=== PATIENT | male | born 1945 | race Caucasian/White ===

== ENCOUNTER 2017-02-27 07:02 | Emergency (ER) | payer MEDICARE ==
[2017-02-27 07:10] VITALS: BP 143/94
--- NOTE | 2017-02-27 07:52 | UC ---
Los Álvarez Angela, [facility] on 02/27/17 at 0717 . Complaint Male HPI - HPI Summary HPI Summary: In Room Note: This pt is a 71 y/o male presenting to [facility] c/o urinary frequency x3 days. Pt c/ o of low back pain as well. Pt denies dysuria, fever, cough, SOB, chest pain, cold symptoms, nausea, vomiting, diarrhea. He states he has been taking Zzzquil for a few months, a sleeping aide, which he notes after reading the label he shouldn't take with an enlarged prostate. He states that he has not been taking his medications at the times he is supposed to. PMHx: kidney infections (years ago). He denies any past surgeries. MDs Note: Vital signs stable, blood pressure 143/94, temperature 98.8. history of enlarged prostate. Visit history: low back discomfort; hematuria, dysuria, frequent urination. On Proscar and Flomax. Pt is not on anti-hypertensive medication. Cytology on 11/21/15 negative for malignant cells in the urine. Nurses Note: Urinary frequency and bilateral lower back pain for past couple days. Denies abdominal pain, fever, hematuria. - History of Current Complaint Chief Complaint: UCGU Stated Complaint: UTI COMPLAINT Hx Obtained From: Patient Onset/Duration: Lasting Days Timing: Lasting Days Associated Signs And Symptoms: Positive: Back Pain. Negative: Fever, Hematuria , Dysuria - Allergies/Home Medications Allergies/Adverse Reactions: Allergies Allergy/AdvReac Type Severity Reaction Status Date / Time No Known Allergies Allergy Verified 02/27/17 07:05 Home Medications: Home Medications Finasteride TAB* [Proscar TAB*] 1 tab PO DAILY 02/27/17 [History Confirmed 02/27] PMH/Surg Hx/FS Hx/Imm Hx - Additional Past Medical History Additional PMH: PMHx: enlarged prostate, kidney infections Other Endocrine History: DENIES: diabetes Other Cardiovascular History: DENIES: HTN - Surgical History Surgical History: Yes Surgery Procedure, Year, and Place: 06/2015 RIGHT KNEE ARTHROSCOPIC SX,LOW BACK, FINGER - Family History Known Family History: Negative: Cardiac Disease, Hypertension, Diabetes - Social History Occupation: Retired Alcohol Use: Occasionally Substance Use Type: None Smoking Status (MU): Never Smoked Tobacco Review of Systems Constitutional: Negative Skin: Negative Eyes: Negative ENT: Negative Respiratory: Negative Cardiovascular: Negative Gastrointestinal: Negative Genitourinary: Frequency Motor: Negative Neurovascular: Negative Musculoskeletal: Other: - low back pain Neurological: Negative All Other Systems Reviewed And Are Negative: Yes Physical Exam Triage Information Reviewed: Yes Vital Signs: Initial Vital Signs Temp 98.8 F 02/27/17 07:07 Pulse 79 02/27/17 07:07 Resp 16 02/27/17 07:07 BP 143/94 02/27/17 07:07 Pulse Ox 100 02/27/17 07:07 Vital Signs Reviewed: Yes - Additional Comments The patient is well-nourished in no acute distress and in no acute pain. The skin is warm and dry and skin color reflects adequate perfusion. HEENT: The head is normocephalic and atraumatic. The pupils are equal and reactive. The conjunctivae are clear and without drainage. Nares are patent and without drainage. Mouth reveals moist mucous membranes and the throat is without erythema and exudate. The external ears are intact. The ear canals are patent and without drainage. The tympanic membranes are intact. Neck is supple with full range of motion and non-tender. There are no carotid bruits. There is no neck vein distension. Respiratory: Chest is non-tender. Lungs are clear to auscultation and breath sounds are symmetrical and equal. Cardiovascular: Hear is regular rate and rhythm. There is no murmur or rub auscultated. There is no peripheral edema and pulses are symmetrical and equal. Abdomen: THE ABDOMEN IS SOFT AND BOWEL SOUNDS ARE PRESENT. THERE IS NO POINT TENDERNESS. THERE IS NEGATIVE CVA TENDERNESS. There are normal bowel sounds heard in all four quadrants. : THERE IS NO INGUINAL ADENOPATHY. GENITALIA IS NORMAL, UNCIRCUMCISED MALE WITH NO TESTICULAR PAIN, SWELLING, REDNESS, OR EVIDENCE OF HERNIA. Musculoskeletal: Extremities are non-tender with full range of motion. There is good capillary refill. There is no peripheral edema or calf tenderness elicited. PAIN AROUND L2 BILATERALLY. INCREASED DISCOMFORT WITH MOVEMENT FROM SIDE TO SIDE. Neurological: Patient is alert and oriented to person, place and time. The patient has symmetrical motor strength in all four extremities. Psychiatric: The patient has an appropriate affect and does not exhibit any anxiety or depression. Complaint Male Course/Dx - Course Course Of Treatment: On exam, there is PAIN IS AROUND L2 BILATERALLY. THERE IS INCREASED DISCOMFORT WITH MOVEMENT FROM SIDE TO SIDE. ABDOMEN IS SOFT, BOWEL SOUNDS PRESENT. NO POINT TENDERNESS. NEGATIVE CVA TENDERNESS. NO INGUINAL ADENOPATHY. GENITALIA IS NORMAL, UNCIRCUMCICED MALE WITH NO TESTITULAR PAIN, SWELLING, REDNESS, OR EVIDENCE OF HERNIA. MDM: Pt with a history of hematuria and benign prostate hypertrophy presents with increased frequency and low back discomfort consistent with musculoskeletal strain. Pt is afebrile. Pts condition has been getting more frequent in the last few days. He is on Flomax and Proscar. He has also started to take a Zzzquil, diphenhydramine. He is also not taking his medication on a regular basis nor at the same time. I explained to the pt one of the adverse reaction of diphenhydramine is urinary frequency. He may also be having increased prostatic hypertrophy and may need a change in medication. Pt will call Dr. Baca in 2 days and stop the diphenhydramine. UA has trace blood otherwise it is negative, and there is no sign of infection. Pt had not complaint of prostate discomfort. Prostate exam deferred. Medications have been included in the original chart and reviewed. Patient is Urgent/ Emergent. BP elevated due to current condition w/o HTN in PMH. - Differential Dx/Diagnosis Differential Diagnosis/HQI/PQRI: Other - Benign prostatic hypertrophy vs medication, adverse reaction to diphenhydramine Provider Diagnoses: Urinary frequency secondary to diphenhydramine Discharge - Discharge Plan Condition: Stable Disposition: HOME Patient Education Materials: Benign Prostatic Hypertrophy (ED) Referrals: Rosas Quintero MD [Primary Care Provider] - Additional Instructions: WE DISCUSSED: 1. You don't appear to have an infection of your bladder, prostate or kidneys. However, if you develop more or different pain or temperature, go to ED. 2. Your urine test did NOT show infection. It revealed a small amount of blood consistent with your history. 3. The medication you are using for sleep can cause frequency. Stop that medication and continue taking your prescriptions on schedule. 4. Call Dr. Baca on Wednesday for further evaluation if condition is not improving. Your medications may need to be adjusted. 5. GO TO ED FOR ANY SIGN OF INFECTION. The documentation as recorded by the Los thompson Angela accurately reflects the service I personally performed and the decisions made by me, Avelino Diez MD.
== END 2017-02-27 07:45 | disposition home or self-care (01) ==
LOC: UCEAST 07:02
DX: R35.0 Frequency of micturition (principal); M54.5 Low back pain; N40.0 Benign prostatic hyperplasia without lower urinary tract symptoms
CPT/HCPCS: 81003; 99211; G0463

== ENCOUNTER 2017-03-03 12:24 | Inpatient (IN) | payer MEDICARE ==
[2017-03-03 14:00] LABS: Hematocrit 43 % (42-52); Hemoglobin 14.3 g/dl (14.0-18.0); Mean Corpuscular HGB Conc 33 g/dl (31-36); Mean Corpuscular Hemoglobin 30 pg (27-31); Mean Corpuscular Volume 91 fL (80-94); Mean Platelet Volume 8 um3 (7.4-10.4); Red Blood Count 4.72 10^6/ul (4.0-5.4); Red Cell Distribution Width 15 % (10.5-15)
--- NOTE | 2017-03-03 14:11 | RAD ---
Indication: Chest pain. Single frontal view of the chest performed at 1347 hours was reviewed. Comparison is made with previous exam dated January 20, 2006. No mediastinal shift is noted. Heart is of normal size and configuration. Lung huston appear clear. IMPRESSION: NO ACTIVE CARDIOPULMONARY DISEASE IS NOTED.
[2017-03-03 14:16] LABS: Troponin I 2.49 ng/mL (<0.04)
[2017-03-03 14:21] LABS: Albumin 3.6 g/dL (3.2-5.2); BUN/Creatinine Ratio 14.3 (8-20); Calcium 8.9 mg/dL (8.6-10.3); EGFR African American 106.2 (>60); EGFR Non-African American 82.6 (>60); Globulin 2.8 g/dL (2-4); Potassium 4.2 mmol/L (3.5-5.0); Total Bilirubin 0.4 mg/dL (0.2-1.0); Total Protein 6.4 g/dL (6.4-8.9)
[2017-03-03] MEDS: Metoprolol Succinate XL TAB* 25 MG PO SCH ×2 (15:48→22:32)
[2017-03-03] MEDS ORDERED: Nitroglycerin 0.4 MG/HR PATCH* (10 MG) TRANSDERM ONE (16:03)
[2017-03-03] MEDS ORDERED: Iohexol 350* (CONTRAST) 500 ML MDV IV ONE (16:12)
--- NOTE | 2017-03-03 16:29 | RAD ---
INDICATION: Back pain evaluate for aortic dissection. COMPARISON: CT abdomen pelvis April 20, 2012 TECHNIQUE: Axial source images were obtained from the thoracic inlet to the symphysis pubis following administration of oral and intravenous contrast. CT angiographic technique was utilized with injection of .....Coronal and sagittal reconstructed images were acquired. CHEST FINDINGS: Neck/thyroid: The visualized neck to include the thyroid appear normal. Chest wall: There are no acute abnormalities of the bony thorax or chest wall. There is no supraclavicular, infraclavicular, or axillary lymphadenopathy. Lungs : There are no pulmonary parenchymal masses or infiltrates. The pulmonary interstitium appears normal. There are no endobronchial lesions. Cardiomediastinal structures: The heart is normal in size. There is no pericardial effusion. There is no evidence of aortic aneurysm or dissection. There is no CT evidence of acute pulmonary embolic disease. There is no mediastinal or hilar adenopathy. The esophagus appears normal. Pleura : There are small pleural-based areas of nodularity. These are both rounded and linear. There are scant pleural calcifications on the right. Suggest correlation with history of prior occupational exposure. ABDOMINAL/PELVIC FINDINGS: Liver: The liver is normal in size. There are no masses. There is no ductal dilatation. Gallbladder: There are no calcified gallstones. There is no evidence of wall thickening or pericholecystic fluid. Spleen: The spleen is normal in size. There are no masses. Pancreas: There is no evidence of pancreatic mass or ductal dilatation. Adrenal glands: There is no evidence of adrenal mass. Kidneys: The kidneys are normal in size and position. There are prompt nephrograms and there is prompt excretion bilaterally. There are no new renal parenchymal masses. There are bilateral parapelvic cysts left greater than right, less likely hydronephrosis. The appearance is unchanged. There is no evidence of nephrolithiasis. Adenopathy: There is no evidence of adenopathy by size criteria. Fluid collections: There are no free or localized fluid collections. Vessels:There are atherosclerotic changes of the aorta. There is no focal aneurysm. There is no dissection. The IVC is unremarkable GI tract: Limited evaluation as oral contrast was not administered. No specific CT abnormality upper or lower GI tracts. Pelvic organs: The prostate is enlarged Bladder: There are no bladder masses. There is extrinsic mass effect produced by the prostate. Abdominal and pelvic soft tissues: The extraperitoneal abdominal and pelvic soft tissues appear normal.. Osseous structures: There are no acute osseous findings. There is spondylitic change of the lumbar spine. IMPRESSION: 1. Nonspecific pleural-based nodularity. Suggest correlation with occupational exposure. Consider follow-up noncontrast CT imaging the chest and [address] evidence of acute pulmonary embolic disease. 3. No CT evidence of aortic aneurysm or dissection. 4. Enlarged prostate. 5. Probable bilateral parapelvic cysts left greater than right, unchanged.
[2017-03-03 16:44] LABS: HDL Cholesterol 45.5 mg/dL
[2017-03-03] MEDS ORDERED: Heparin DRIP 25,000 UNITS(*) 25,000 UNITS/500 ML BAG IVPB SCH (16:45)
[2017-03-03 16:48] LABS: Troponin I 3.77 ng/mL (<0.04)
[2017-03-03] MEDS ORDERED: Heparin VIAL(*) 5000 UNITS/ML VIAL (FIVE THOUSAND) IV SCH (17:00)
--- NOTE | 2017-03-03 18:12 | CONS ---
CC: Aravind Levy MD; Hospitalist Service CONSULTATION REPORT: DATE OF CONSULT: 03/03/17 REASON FOR CONSULTATION: Chest pain and elevated troponins. HISTORY OF PRESENT ILLNESS: Mr. Peters is a 71-year-old gentleman with no prior cardiac history identified, but a family history of coronary disease. The patient was in his usual state of health until early this morning. He awoke early this morning in bed with pain across the lower portion of the chest ; it was vague, somewhat like indigestion, but kept him awake. He sat in the chair for a couple of hours, eventually fell asleep and awoke with similar pain , although somewhat improved. He denied any positional or pleuritic quality to it, but it persisted, so he presented to the emergency department. In the emergency department, his EKG showed a right bundle branch block, but was otherwise unremarkable. His initial troponin was mildly elevated at approximately 2.5. The patient denies any recent travel. Last night, he had no unusual food. He did not overeat. He is a nonsmoker. No recent activity. He has had similar pain back in September and October of this year in the daytime and therefore, a stress test was obtained through [facility] and he was told everything was fine. This discomfort went away and then did not come back until early this morning. The patient has had some pain under the left scapula that has come and gone over time, typically it will occur when he is trying to go to sleep and be positional, and that is bothering him right now as well. He denies any associated nausea, shortness of breath, diaphoresis, and denies any radiation. His neck, jaw and arms feel fine. The patient denies any recent exercise intolerance and he has been quite active doing chores around the house. The patient has a past medical history of benign prostatic hypertrophy, past surgical history, orthopedic surgeries of the knee and finger and left heel. OUTPATIENT MEDICATIONS: Include; 1. Tramadol p.r.n. 2. Proscar 5 mg a day. 3. Flomax 0.4 mg a day. ALLERGIES: He has no known drug allergies. FAMILY HISTORY: Significant in that his mother had a history of congestive heart failure and of bladder cancer. His father has a history of coronary artery disease and paroxysmal atrial fibrillation and a pacemaker. SOCIAL HISTORY: The patient is retired. Did work at the [employer] and was in the [place] war, feels he has had multiple exposures including Agent Rosebud, asbestos and more. He smoked distantly. No history of recreational drug use. REVIEW OF SYSTEMS: Negative for recent fevers, chills, sweats. No hematuria or dysuria. No constipation, diarrhea, change in bowel or bladder habits. No recent [id number] medications. No recent travel. No coughing. It is positive for snoring. He states that his says he snores a lot. He says he has good energy in the daytime. Appetite has been stable. No recent weight gain or loss. No recent swelling in the legs or change in exercisability. All other 14-point review of systems is unremarkable. PHYSICAL EXAM: Vital Signs: On exam, the patient is 5 feet 5 inches, weighs 165 pounds with the BMI of 27.5. General Appearance: A short, fit appearing, mildly centripetally overweight somewhat older gentleman in no acute distress. Psychologic: Calm, cooperative, and pleasant. Neurologic: Awake, alert, and oriented to person, place, and time. Cranial nerves II through XII are intact grossly. Normal sensory and motor function in the upper and lower extremities. Normal gait. Skin: Warm, dry. No cyanosis or rashes. HEENT: Pupils are equal and round. Mucous membranes are moist. Neck: Without increased JVP appreciated. Good carotid pulses. No audible bruits. No thyromegaly. Lungs: Clear with good effort. No wheezes, rales, or rhonchi. Coronary: S1, S2 regular without murmurs or rubs. Abdomen: Active bowel sounds. Soft, nontender. No hepatosplenomegaly or masses. No bruits. Radial pulses are 2 to 3+ and symmetrical. Posterior tibial pulses also strong and symmetrical and dorsalis pedal pulses are easily palpable. Lower extremities are free of edema. Femoral pulses palpable and no bruits appreciated. DIAGNOSTIC STUDIES/LAB DATA: A 12-lead ECG done on arrival to the emergency department at 12:30 today shows normal sinus rhythm, 85 beats a minute, QRS axis of -45, shows a right bundle-branch block and normal ST segments. Repeat EKG at 1433 shows normal sinus rhythm, 68 beats a minute. QRS axis -45 with normal AV conduction time with a right bundle-branch block and stable ST segment. When these EKGs are compared with an old EKG of 2003, the right bundle -branch block is new. At the time of the patient's stress test, 10/01/16, he did have a right bundle- branch block. Exercise Myoview study done, 10/01/16, showed he was able to exercise 5 minutes and 15 seconds on a Bol[place]ar protocol. He had a right bundle-branch block at baseline. No significant ST changes. Resting blood pressure 146/88 with a peak of 182/82. He had normal perfusion rest and stress with an ejection fraction of 76%. LABORATORY DATA: Labs show a white count of 7.0, hematocrit 43, platelets 226, 000, monos slightly increased to 10.2. D-dimer 202. Sodium 137, potassium 4.2 , chloride 106, bicarb 26, BUN 13, creatinine 0.91, glucose 88. ALT of 15. Troponin #1 2.49. Lipids from 05/09/11 showed total cholesterol 207, triglycerides 47, LDL cholesterol 139, and HDL cholesterol 59. Urinalysis was performed, 02/27/17, showed trace blood, nitrite negative, esterase negative, ketone negative, specific gravity 1.015. IMPRESSION: In summary, Mr. Peters is a 71-year-old gentleman who presented after several hours of vague across chest pain that occurred at sleep, with his EKG at his baseline with a right bundle-branch block and mild elevation in troponins. Atherosclerotic risks include family history, mild dyslipidemia in , possible mild hypertension based on history. Also of concern is infrascapular pain that has been coming and going for several weeks and months that is now constant in the emergency department. For the elevated troponins in the setting of atherosclerotic risks, we will get some updated lipids and serial troponins. We will additionally medically manage him with beta-sherin, empiric statins and NEDRA inhibitors as titrated to blood pressure. As he has had a recent stress test, I do not recommend repeating this and instead, I think we should proceed to cardiac catheterization. He still has some back discomfort and therefore, I discussed potentially imaging his aorta to ensure no acute aortic process is occurring on the abdominal aorta. Aspirin should be started and if aorta deemed okay, unfractionated heparin drip should be initiated. Additional recommendations will be made pending this clinical course and response to the above measures. ADDENDUM: Trop #2 3.77, LDL cholesterol 163, echo showed apical hypokinesis, Dr. Ellis cathed and stent in LAD. [id number]/[facility] #: [id number] [facility]PITALMarielle
[2017-03-03] MEDS ORDERED: Ticagrelor* 90 MG TAB PO ONE ×2 (18:16→18:25)
[2017-03-03] MEDS ORDERED: Midazolam* 1 MG/ML 5 ML VIAL (5 MG) ONE (18:42)
[2017-03-03] MEDS ORDERED: fentaNYL* 50 MCG/ML 2 ML VIAL (100 MCG VIAL) ONE (18:42)
[2017-03-03] MEDS ORDERED: Heparin(*) 1000 UNIT/ML 10 ML VIAL CATH LAB IV ONE (18:42)
[2017-03-03] MEDS ORDERED: Iohexol 350 (CONTRAST) 200 ML MDV IV ONE ×2 (18:43→19:53)
[2017-03-03] MEDS ORDERED: VERAPAMIL 2.5 MG/ML 4 ML VIAL ONE (18:43)
[2017-03-03] MEDS ORDERED: nitroGLYCERIN DRIP* 250 ML ONE (18:43)
[2017-03-03] MEDS ORDERED: Heparin 2 UNITS/ML IVPREMIX* 3,000 ML IV ONE (18:43)
[2017-03-03] MEDS ORDERED: Lidocaine 1% INJ* 10 MG/ML 30 ML SDV ONE (18:43)
[2017-03-03] MEDS ORDERED: Bivalirudin(*) 250 MG VIAL ONE (19:39)
--- NOTE | 2017-03-03 20:23 | ECHO ---
Patient: KEITH LINDSAY Rec#: [id number] : 1945 Date: 03/03/2017 Age: 71y Height: 165 cm / 65.0 in Weight: 75 kg / 165.3 lbs Sex: M BSA: 1.82 Room#: ED 3 Admit Date#: 03/03/2017 Type: Inpatient Referring: Mary Steel MD Reading: Mary Steel MD Janitorial Account Manager: Estela Quispe RDCS,RDMS CC: Rosas Quintero MD Transthoracic Echocardiogram Indication: CP BP: 144/81 HR: 81 Rhythm: NSR Findings History: No previous history Technical Comments: The study quality is good. Completed 1700 Left Ventricle: The left ventricular chamber size is normal. There is a prominent septal knuckle. There is a focal wall motion abnormality present.The apex is hypokinetic in multiple views. The estimated ejection fraction is 55-60%. Abnormal left ventricular diastolic filling is observed, consistent with impaired relaxation. Left Atrium: The left atrial chamber size is normal. Right Ventricle: The right ventricular chamber size and systolic function are within normal limits. Right Atrium: The right atrial cavity size is normal. Aortic Valve: The aortic valve is trileaflet. There is no evidence of aortic valve thickening. Systolic excursion of the aortic valve is normal. There is no evidence of aortic regurgitation. There is no evidence of aortic stenosis. Mitral Valve: The mitral valve leaflets appear normal. There is no evidence of mitral regurgitation. There is no evidence of mitral stenosis. Tricuspid Valve: The tricuspid valve leaflets are normal. There is trace tricuspid regurgitation. Unable to estimate the right ventricular systolic pressure. Pulmonic Valve: The pulmonic valve appears normal. There is a trace pulmonic regurgitation. Pericardium: There is no significant pericardial effusion. Aorta: The aortic root appears normal. There is no dilatation of the aortic arch. Pulmonary Artery: The main pulmonary artery appears normal. Venous: The inferior vena cava appears normal in size. There is a greater than 50% respiratory change in the inferior vena cava dimension. Conclusions Normal LV chamber dimensions. Small focal area of apical hypokinesis. LV ejection fraction is 60%. Abnormal left ventricular diastolic filling is observed, consistent with impaired relaxation. The right ventricular chamber size and systolic function are within normal limits. All valves appear structurally normal with good funtion. There is trace tricuspid regurgitation. Compared with prior echo of 02/11/15, EF and valve function is stable. Apical wall motion abnormality is newly noted. Measurements Name Value Normal Range RVIDd (AP) 2D 2.8 cm (0.9 - 2.6) RVDdMajor (2D) 3.1 cm (2.2 - 4.4) RAd ISD 4CH 4.4 cm (3.4 - 4.9) RA (A4C)W 4.7 cm (2.9 - 4.6) IVSd (2D) 1.1 cm (0.6 - 1) LVPWd (2D) 0.9 cm (0.6 - 1) LVIDd (2D) 3.9 cm (3.6 - 5.4) LVIDs (2D) 2.4 cm - LV FS (2D) 39 % (25 - 45) Aortic Annulus 2.2 cm (1.4 - 2.6) Ao root diameter (2D) 3.2 cm (2.1 - 3.5) Ascending Ao 3.4 cm (2.1 - 3.4) Aortic arch 2.7 cm (1.8 - 3.4) LA dimension (AP) 2D 3.5 cm (2.3 - 3.8) LAd ISD 4CH 5.4 cm (2.9 - 5.3) LA ISD 4CH W 4 cm (2.5 - 4.5) Name Value Normal Range LA ESV SP 4CH (A/L) 49.55 ml - LA ESV SP 2CH (A/L) 54.74 ml - LA ESV BP (A/L) 53.81 ml - LA ESV BP (A/L) index 29 ml/m2 - LA ESV SP 4CH (MOD) 47.42 ml - LA ESV SP 2CH (MOD) 51.05 ml - Name Value Normal Range MV E-wave Vmax 0.6 m/sec - MV deceleration time 225 msec - MV A-wave Vmax 0.6 m/sec - MV E:A ratio 1 ratio - P. vein S-wave Vmax 0.4 m/sec - P. vein D-wave Vmax 0.3 m/sec - P. vein S:D Vmax ratio 1.5 ratio - P. vein A-wave duration 97 msec - LV septal e' Vmax 0.06 m/sec - LV lateral e' Vmax 0.06 m/sec - LV E:e' septal ratio 10 ratio - LV E:e' lateral ratio 10 ratio - Name Value Normal Range AV Vmax 1.2 m/sec - AV VTI 23.1 cm - AV peak gradient 6 mmHg - AV mean gradient 3.1 mmHg - LVOT Vmax 0.9 m/sec - LVOT VTI 20 cm - LVOT peak gradient 3.2 mmHg - LVOT mean gradient 1.8 mmHg - LJ Vmax 0.7 m/sec - Name Value Normal Range RAP 8 mmHg - IVC diameter 1.5 cm - Name Value Normal Range PV Vmax 0.8 m/sec - PV peak gradient 2.6 mmHg -
[2017-03-03] MEDS ORDERED: Nitroglycerin TAB 0.4 MG* 0.4 MG TAB SL PRN (20:26)
[2017-03-03] MEDS ORDERED: NS 0.9% 1000 ML* 1,000 ML IV SCH (20:30)
[2017-03-03] MEDS: Atorvastatin* 40 MG TAB PO SCH (20:33)
--- NOTE | 2017-03-03 20:46 | HP ---
CC: Dr. Quintero * HISTORY AND PHYSICAL: DATE OF ADMISSION: PRIMARY CARE PROVIDER: Dr. Rosas Quintero. MY ATTENDING WHILE IN THE HOSPITAL: Dr. Jj Quinonez * (DICTATED BY ANGELA BAH) CHIEF COMPLAINT: Chest pain since about 1:30 this morning. HISTORY OF PRESENT ILLNESS: Mr. Peters is a 71-year-old male with a past medical history significant for BPH, musculoskeletal complaints, and a previous episode of chest pain with a negative stress test, who presents today for approximately 12 hours of what he describes as an achy pressure in the center of his chest, substernal. The patient states that it is a 4/10 at the time of this interview down from an 8/10 at its worst earlier today. The patient states the pain never really went away. The patient cannot identify any provoking or palliating factors. The patient states it is not worse with exercise. When he got up and walked around, it did not get any better or worse , it was constant and started when he was at rest. The patient denies pain radiating to his arms, sweating, nausea, shortness of breath. The patient also denies any long-term increases in leg swelling or decreases in exercise tolerance. The patient also denies postural nocturnal dyspnea, nocturia, or orthopnea. The patient took aspirin 325 mg at home today before coming to the hospital because he suspected this might be of cardiac origin. The patient had a chest pain earlier this year that was in a different spot, more on the left side of his chest, and was also described as a pressure, but did not feel like the pain he had today and only lasted about 2 minutes at each episode, usually at rest. The patient then had a negative stress test, which revealed right bundle branch block, but nothing else. The patient also has back pain for several weeks below his left shoulder blade. The patient states this is worse when he is lying down and usually, he says he can make it go away by moving around. He rates it a 2-3/10 and states it feels like someone is poking him with their fist in his back. The patient denies any recent illnesses, sick contacts. The patient retired from his part-time job earlier this year and has gained 15 to 20 pounds due to increased inactivity since then. The patient was screened for diabetes at his primary care doctor last year. PAST MEDICAL HISTORY: BPH; right bundle branch block; arthritis, lower extremity; history of sciatica. PAST SURGICAL HISTORY: Hemilaminectomy, 2003; vocal cord polyps removal in 1982 ; repair of a degloving injury; meniscectomy. MEDICATIONS: 1. Tramadol 50 mg p.o. daily. 2. Finasteride 5 mg p.o. daily. 3. Tamsulosin 0.4 mg p.o. daily. ALLERGIES: No known drug allergies. FAMILY HISTORY: The patient's father had a pacemaker put in for reasons unknown. The patient denies any other family history of coronary artery disease. The patient denies a family history of diabetes. The patient denies any family history of cancer. Patient denies any other significant family history. SOCIAL HISTORY: The patient smoked for approximately 15 years while in the when he was around 22. The patient drinks occasional alcohol and denies any drug use. 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 The patient is , with 2 children. REVIEW OF SYSTEMS: The patient denies fever, chills, nausea, vomiting, cough, hemoptysis, shortness of breath, diarrhea, abdominal pain, changes in urine, dysuria, hematuria, weakness, sensory loss. The patient states that he has been having baseline arthritis pain in his knees. The patient has no new rashes. PHYSICAL EXAMINATION GENERAL: The patient is a 71-year-old male, who appears his stated age, sitting in the hospital bed, in no acute distress. VITAL SIGNS: Temperature 98.1, pulse rate 75, respiratory rate 16, oxygen saturation 97% on room air, blood pressure 127/66. HEENT: Head: Normocephalic, atraumatic. Sclerae anicteric. No conjunctival injection. No rhinorrhea. Pharynx: Nonerythematous. Mucous membranes are moist. NECK: Supple, nontender. No lymphadenopathy. No carotid bruit auscultated. RESPIRATORY: There are faint crackles in the lower lobes of both lungs. Otherwise, no adventitious lung sounds. Good air exchange bilaterally. CARDIAC: Regular rate and rhythm. No clicks, murmurs, gallops, or rubs. S1, S2 heard. No heaves, lifts, or thrills. PMI nondisplaced. Radial, dorsalis pedis, and posterior tibialis pulses 2+ bilaterally. No edema noted in the lower extremities. ABDOMEN: Soft, nontender, nondistended. Bowel sounds are hyperactive in all 4 quadrants. No hepatosplenomegaly. No abdominal bruits auscultated. NEURO: Cranial nerves II through XII grossly intact. The patient is alert and oriented x3. SKIN: No rashes; otherwise, pink, dry, and intact. DIAGNOSTIC STUDIES/LAB DATA: White blood cell count 7.0, hemoglobin 14.3, hematocrit 43, platelet count 226. D-dimer 202. Sodium 137, potassium 4.2, chloride 106, carbon dioxide 26, anion gap of 5, BUN 13, creatinine 0.91, lactic acid 0.9. AST 37, ALT 15. Troponin 2.49. Chest x-ray read as no active cardiopulmonary disease noted. Electrocardiogram shows right bundle branch block and nonspecific ST changes in V1. No change between exams. CT abdomen, pelvis, and chest pending. IMPRESSION AND PLAN: The patient is a 71-year-old male with a past medical history significant for negative stress test earlier this year and Benign prostatic hyperplasia, who presents with a non-ST elevation myocardial infarction. He will be admitted to the ICU for monitoring and medication management and will be taken to the laborer wood preserving plant in the morning if deemed a candidate by Interventional Cardiology. 1. Non-ST elevation myocardial infarction. The patient has active chest pain of cardiac origin with a significant elevated troponin. The patient does not have any other risk factors, does not have any past medical history predisposing to heart attack and negative chest x-ray earlier this year. We will start on nitro patch for the chest pain which he still rates a 4/10. The patient will additionally be started on beta sherin 50 mg p.o. b.i.d., lisinopril 5 mg p.o. daily. The patient will be started on a heparin drip pending results of the CT of the chest to rule out aortic dissection due to the patient's back pain. The patient has already taken aspirin. The patient will have an echocardiogram today and we will cycle troponins, to see if they continue to increase, we will order lipid panel and hemoglobin A1c and consult Interventional Cardiology. The patient will be n.p.o. After midnight, until then he will be on heart-healthy diet. 2. Benign prostatic hyperplasia. Continue the patient's home finasteride. Discontinue Flomax while in the hospital due to the necessity for other blood pressure lowering medications. 3. FEN. The patient is on a heart-healthy diet, no caffeine until midnight, then he will be n.p.o. We will start fluids at midnight for blood pressure support and to avoid dehydration. 4. DVT prophylaxis. The patient is up ad dimitry and will be started on a heparin drip. 5. Code status. The patient is full code. The patient's healthcare proxy is his , Stefanie Peters. 6. Disposition. The patient is admitted to the ICU. TIME SPENT: Approximately 60 minutes was spent on this admission, over half of which was spent [id number] with the patient obtaining history and physical. This plan has been discussed with release of information clerk, Dr. Mary Steel, and with Dr. Latonya Gonzales, and they are in agreement. ANGELA BAH [id number]/[facility] #: [id number] ROMEO
[2017-03-03] MEDS ORDERED: Atorvastatin* 40 MG TAB PO SCH (21:00)
--- NOTE | 2017-03-03 21:44 | HP ---
HISTORY AND PHYSICAL: ADDENDUM: Mr. Peters is a 71-year-old male who presented with chest pain. His troponin was above 2. He is going to be admitted to the ICU with a diagnosis of probable DE, placed on heparin drip. Cardiology already saw the patient in consultation. For further details of patient's presentation and plan, please see history and physical evaluated by Jad cook on 03/03/17 with which I agree. [id number]/[facility] #: [id number] MTDMarielle
--- NOTE | 2017-03-03 21:58 | ED ---
Torie Álvarez Thomas, scribed for Nahid Arguello MD on 03/03/17 at 1322 . HPI Chest Pain - HPI Summary HPI Summary: The pt is a 71 y/o M presenting to the ED c/o mid sternal CP that began today at 01:30 when he woke up to walk his dog. The pain is constant and he describes it as constant. The pt rates the pain 4/10. The pain is aggravated by lying supine and is alleviated by nothing. The patient has treated the pain with ASA and Tums this AM, neither of which relieved his pain. Pt denies SOB, arm pain, diaphoresis, nausea, lightheadedness, and leg swelling. Five months ago, he had intermittent palpitations that were evaluated by Dr. Steel in a stress test. That workup was negative. These palpitations have completely resolved. He measured his blood pressure this AM and it was 170s/70s. PMHx: BPH. PSHx: L knee surgery. SHx: no smoking, occasional drinking, no illicit drug use. FHx: CAD. - History of Current Complaint Chief Complaint: EDChestPainROMI Time Seen by Provider: 03/03/17 12:42 Hx Obtained From: Patient Onset/Duration: Started Hours Ago - this AM at 01:30, Still Present Timing: Constant Current Severity: Moderate Pain Intensity: 4 Pain Scale Used: 0-10 Numeric Chest Pain Location: Mid Sternal Chest Pain Radiates: No Character: Pressure/Squeezing Aggravating Factor(s): Position - lying supine Alleviating Factor(s): Nothing Associated Signs and Symptoms: Positive: Chest Pain. Negative: Shortness of Breath, Swelling - swelingn olg, Lightheadedness, Diaphoresis, Nausea, Other: - painNEG: arm - Allergy/Home Medications Allergies/Adverse Reactions: Allergies Allergy/AdvReac Type Severity Reaction Status Date / Time No Known Allergies Allergy Verified 03/03/17 12:25 Home Medications: Home Medications Finasteride TAB* [Proscar TAB*] 5 mg PO DAILY 03/03/17 [History Confirmed ] Tamsulosin CAP* [Flomax CAP*] 0.4 mg PO DAILY 03/03/17 [History Confirmed ] traMADol TAB* [Ultram*] 25 mg PO Q6HR PRN 03/03/17 [History Confirmed 03/03/17] PMH/Surg Hx/FS Hx/Imm Hx Previously Healthy: Yes Endocrine/Hematology History: Denies: Hx Diabetes Cardiovascular History: Denies: Hx Hypertension, Hx Pacemaker/ICD GI History: Denies: Hx Cirrhosis History: Reports: Hx Benign Prostatic Hyperplasia Denies: Hx Dialysis, Hx Renal Disease Sensory History: Denies: Hx Hearing Aid Psychiatric History: Denies: Hx Panic Disorder - Surgical History Surgery Procedure, Year, and Place: 06/2015 RIGHT KNEE ARTHROSCOPIC SX,LOW BACK, FINGER Infectious Disease History: Denies: Hx Hepatitis, Traveled Outside the [place] in Last 30 Days - Family History Known Family History: Positive: Cardiac Disease Negative: Hypertension, Diabetes - Social History Alcohol Use: Occasionally Hx Substance Use: No Substance Use Type: Reports: None Hx Tobacco Use: No Smoking Status (MU): Never Smoked Tobacco Review of Systems Negative: Fever, Skin Diaphoresis Positive: Chest Pain - mid sternal, pressure, onest 01:30 Negative: Shortness Of Breath Negative: Nausea Negative: Edema - leg, Other - NEG: arm pain Neurological: Other - NEG: lightheadedness All Other Systems Reviewed And Are Negative: Yes Physical Exam Triage Information Reviewed: Yes Vital Signs On Initial Exam: Initial Vitals Temp Pulse Resp BP Pulse Ox 99 F 92 16 169/76 97 03/03/17 12:25 03/03/17 12:25 03/03/17 12:25 03/03/17 12:25 03/03/17 12:25 Vital Signs Reviewed: Yes Appearance: Positive: Well-Appearing, No Pain Distress, Well-Nourished Skin: Positive: Warm, Skin Color Reflects Adequate Perfusion, Dry Head/Face: Positive: Normal Head/Face Inspection Eyes: Positive: Normal ENT: Positive: Normal ENT inspection Neck: Positive: Supple, Nontender Respiratory/Lung Sounds: Positive: Clear to Auscultation, Breath Sounds Present Cardiovascular: Positive: RRR Abdomen Description: Positive: Nontender, Soft Bowel Sounds: Positive: Present Musculoskeletal: Positive: Normal Neurological: Positive: Normal Psychiatric: Positive: Normal, Affect/Mood Appropriate Diagnostics - Vital Signs Vital Signs Temp Pulse Resp BP Pulse Ox 03/03/17 12:25 99 F 92 16 169/76 97 - Laboratory Lab Results: Lab Results 03/03/17 03/03/17 03/03/17 Range/Units 13:45 13:45 13:45 WBC 7.0 (3.5-10.8) 10^3/ul RBC 4.72 (4.0-5.4) 10^6/ul Hgb 14.3 (14.0-18.0) g/dl Hct 43 (42-52) % MCV 91 (80-94) fL MCH 30 (27-31) pg MCHC 33 (31-36) g/dl RDW 15 (10.5-15) % Plt Count 226 (150-450) 10^3/ul MPV 8 (7.4-10.4) um3 Neut % (Auto) 58.9 (38-83) % Lymph % (Auto) 28.2 (25-47) % [place] % (Auto) 10.2 H (1-9) % Eos % (Auto) 1.9 (0-6) % Baso % (Auto) 0.8 (0-2) % Absolute Neuts (auto) 4.1 (1.5-7.7) 10^3/ul Absolute Lymphs (auto) 2.0 (1.0-4.8) 10^3/ul Absolute Monos (auto) 0.7 (0-0.8) 10^3/ul Absolute Eos (auto) 0.1 (0-0.6) 10^3/ul Absolute Basos (auto) 0.1 (0-0.2) 10^3/ul Absolute Nucleated RBC 0 10^3/ul Nucleated RBC % 0.1 APTT 28.3 (26.0-36.3) seconds D-Dimer, Quantitative 202 (Less Than 230) ng/mL Sodium 137 (133-145) mmol/L Potassium 4.2 (3.5-5.0) mmol/L Chloride 106 (101-111) mmol/L Carbon Dioxide 26 (22-32) mmol/L Anion Gap 5 (2-11) mmol/L BUN 13 (6-24) mg/dL Creatinine 0.91 (0.67-1.17) mg/dL Est GFR ( Amer) 106.2 (>60) Est GFR (Non-Af Amer) 82.6 (>60) BUN/Creatinine Ratio 14.3 (8-20) Glucose 88 (70-100) mg/dL Lactic Acid (0.5-2.0) mmol/L Calcium 8.9 (8.6-10.3) mg/dL Total Bilirubin 0.40 (0.2-1.0) mg/dL AST 37 (13-39) U/L ALT 15 (7-52) U/L Alkaline Phosphatase 49 (34-104) U/L Total Creatine Kinase 220 (10-223) U/L CK-MB (CK-2) 33.4 H (0.6-6.3) ng/mL Troponin I 2.49 H* (<0.04) ng/mL Total Protein 6.4 (6.4-8.9) g/dL Albumin 3.6 (3.2-5.2) g/dL Globulin 2.8 (2-4) g/dL Albumin/Globulin Ratio 1.3 (1-3) / Range/Units 13:45 WBC (3.5-10.8) 10^3/ul RBC (4.0-5.4) 10^6/ul Hgb (14.0-18.0) g/dl Hct (42-52) % MCV (80-94) fL MCH (27-31) pg MCHC (31-36) g/dl RDW (10.5-15) % Plt Count (150-450) 10^3/ul MPV (7.4-10.4) um3 Neut % (Auto) (38-83) % Lymph % (Auto) (25-47) % [place] % (Auto) (1-9) % Eos % (Auto) (0-6) % Baso % (Auto) (0-2) % Absolute Neuts (auto) (1.5-7.7) 10^3/ul Absolute Lymphs (auto) (1.0-4.8) 10^3/ul Absolute Monos (auto) (0-0.8) 10^3/ul Absolute Eos (auto) (0-0.6) 10^3/ul Absolute Basos (auto) (0-0.2) 10^3/ul Absolute Nucleated RBC 10^3/ul Nucleated RBC % APTT (26.0-36.3) seconds D-Dimer, Quantitative (Less Than 230) ng/mL Sodium (133-145) mmol/L Potassium (3.5-5.0) mmol/L Chloride (101-111) mmol/L Carbon Dioxide (22-32) mmol/L Anion Gap (2-11) mmol/L BUN (6-24) mg/dL Creatinine (0.67-1.17) mg/dL Est GFR ( Amer) (>60) Est GFR (Non-Af Amer) (>60) BUN/Creatinine Ratio (8-20) Glucose (70-100) mg/dL Lactic Acid 0.9 (0.5-2.0) mmol/L Calcium (8.6-10.3) mg/dL Total Bilirubin (0.2-1.0) mg/dL AST (13-39) U/L ALT (7-52) U/L Alkaline Phosphatase (34-104) U/L Total Creatine Kinase (10-223) U/L CK-MB (CK-2) (0.6-6.3) ng/mL Troponin I (<0.04) ng/mL Total Protein (6.4-8.9) g/dL Albumin (3.2-5.2) g/dL Globulin (2-4) g/dL Albumin/Globulin Ratio (1-3) Result Diagrams: 03/03/17 13:45 03/03/17 13:45 Lab Statement: Any lab studies that have been ordered have been reviewed, and results considered in the medical decision making process. - Radiology CXR Xray Interpretation: No Acute Changes - No active cardiopulmonary disease is noted. ED physician has read this report and agrees. Radiology Interpretation Completed By: Radiologist - EKG 12:30 Cardiac Rate: NL - 85 BPM EKG Interpretation: Sinus Rhythm. RBBB that is new compared to prior EKG on 12/22. 14:33 Cardiac Rate: NL - 68 BPM EKG Interpretation: Unchanged compared to prior EKG done at 12:30. Chest Pain Course/Dx - Course Course Of Treatment: Mr. Peters presented with an typical CP and a normal ecg. He was found to have an elevated troponin and Dr. Steel was consulted. HE is being admitted to the hospitalists. - Diagnoses Provider Diagnoses: NSTEMI (non-ST elevated myocardial infarction) - Provider Notifications Discussed Care Of Patient With: Mary Steel Time Discussed With Above Provider: 14:33 Instructed by Provider To: Other - I consulted with Dr. Steel, cardiology, regarding patient care. I also consulted with Dr. Quinonez, hospitalist, who admits the patient to [facility] at 15:29. Discharge - Discharge Plan Condition: Fair Disposition: ADMITTED TO [facility] The documentation as recorded by the Torie thompson Thomas accurately reflects the service I personally performed and the decisions made by me, Nahid Arguello MD.
--- NOTE | 2017-03-03 22:00 | CONS ---
CC: Aravind Levy MD; Mary Steel MD * INTERVENTIONAL CARDIOLOGY CONSULTATION: DATE OF CONSULT: 03/03/17 INDICATIONS FOR PROCEDURE: The patient with continued ongoing chest discomfort with slowly rising troponins, assess for the presence of significant coronary artery disease and intervene if appropriate. HISTORY OF PRESENT ILLNESS: The patient is a pleasant 71-year-old gentleman with no prior known cardiac history. Specifically, he denies any history of myocardial infarction, congestive heart failure, significant heart rhythm disturbance. He was in usual state of health until he woke up this morning in bed with pain across the lower portion of the chest, somewhat vague, but a pressure and indigestion type feeling. He was awake with that discomfort for several hours sitting in a chair and eventually falling asleep. When he woke up , again he still had these symptoms there, although there may have been somewhat improvement to it. Eventually overtime, it seemed to persist and he ended up presenting to the emergency room. In the emergency room, his first EKG showed right bundle-branch block, which was his normal baseline. There were no significant ST-T wave deviations. There appeared to be perhaps Q-waves in III and aVF. Eventually, laboratory results were ordered and a troponin came back at 2.5. Dr. Steel saw the patient in consultation and the patient's symptoms were getting better. The patient also had a knot sensation in his lower trapezius area on the left in his back. He still has mild chest discomfort and the knot discomfort when I see him. The patient apparently had similar discomfort in the chest back in October when he underwent a nuclear stress test at [facility] for which he was told everything was fine. Discomfort apparently had never come back again until this morning. PAST MEDICAL HISTORY: The patient's past medical history is important for the lack of hypertension. He denies any diabetes, he denies any increased cholesterol, he does have family history of coronary artery disease with the mother with congestive heart failure and a father who had coronary artery disease and paroxysmal atrial fibrillation and a pacemaker. The patient's past medical history otherwise included prostatic hypertrophy. PAST SURGICAL HISTORY: Orthopedic surgeries in the knee and finger and left heel. CURRENT MEDICATIONS: On the outside included only: 1. Proscar 5 mg a day. 2. Flomax 0.4 mg a day. 3. Tramadol on a p.r.n. basis. ALLERGIES: He has no allergies. REVIEW OF SYSTEMS: Pertinent preceding to the cardiovascular laboratory denied. The patient denies any hematochezia, hematemesis, or hematuria. He denies any known dye allergy. He denies any history of renal insufficiency. PHYSICAL EXAMINATION: When I see him in the intensive care unit revealed vital signs, blood pressure 150/80, pulse is regular in the 60s, respirations 16, O2 saturation 99%, afebrile. Neck was supple. No increased JVP. Carotids with good upstroke and volume without bruits. Conjunctivae are pink. Sclerae clear. Lungs reveal no accessory muscle usage. He has good exertion. Lungs are clear to A and P. Heart reveals no visible heaves. No palpable heaves or thrills. Normal S1, S2 with no S3, S4 or gallop. No significant systolic or diastolic murmur. Abdomen is soft, nontender without organomegaly. Extremities : Are without clubbing, cyanosis, or ita pitting edema. Neuro: The patient alert, oriented with normal mentation. Musculoskeletal: The patient moves all extremities appropriate. Psychological: The patient with normal affect. Of note, his pulses are all intact with no bruits noted. DIAGNOSTIC STUDIES/LAB DATA: Laboratory results revealed hemoglobin and hematocrit of 14.3 and 43 with a platelet count of 226,000. His sodium is 137, potassium 4.2, chloride 106, bicarb 26, BUN and creatinine of 13 and 0.9. His lactic acid level is 0.9. His SGOT is 37, SGPT is 15. Alk phos is 49. Troponin initially was 2.49, on repeat 3.77, done roughly 3 hours later. Total cholesterol is 228. LDL is 163, HDL is 45. Triglycerides 97. After asking the laboratory to get a CK-MB and a total CPK on the 2.49, samples of those results came back with a total CPK of 220 and an MB of 33.4. D-dimer was 202. Of note, the patient did get a CTA of the chest, abdomen and pelvis, which was reported showing nonspecific pleural based nodularity. Heart was normal sized, there was no evidence of aortic dissection. Enlarged prostate was reported. Electrocardiogram from the emergency room at 12:30 reveals sinus rhythm, heart rate is 85. There is a right bundle-branch block. There are no acute ST-T wave changes and there are what appears to be potentially Q-waves in II and aVF and minimal in lead III. Repeat EKG done at 1433 reveals similar findings with a slower pulse rate. Repeat EKG done at 1746 reveals similar findings. OVERALL ASSESSMENT: Ernesto presents now with abnormal cardiac enzymes clearly suggesting a non ST elevation myocardial infarction with a history of persistent chest pain even still present now. At this point in time, I discussed with him the risks and benefits of proceeding with cardiac catheterization. He understands them and wishes to proceed. It should be noted that when I came to see him in the intensive care unit, he had yet to receive any heparin therapy. I bolused him with 4000 heparin and started heparin drip at 1000 units an hour and gave him a 180 mg of Brilinta. Further management will be made pending results of the cardiac catheterization. [id number]/[facility] #: [id number] ROMEO
[2017-03-03 23:20] LABS: Troponin I 3.19 ng/mL (<0.04)
[2017-03-04] MEDS ORDERED: Acetaminophen TAB* 325 MG PO PRN (01:07)
[2017-03-04 03:59] LABS: Hematocrit 40 % (42-52); Hemoglobin 13.6 g/dl (14.0-18.0); Mean Corpuscular HGB Conc 34 g/dl (31-36); Mean Corpuscular Hemoglobin 31 pg (27-31); Mean Corpuscular Volume 90 fL (80-94); Mean Platelet Volume 8 um3 (7.4-10.4); Red Blood Count 4.45 10^6/ul (4.0-5.4); Red Cell Distribution Width 14 % (10.5-15); White Blood Count 8.8 10^3/ul (3.5-10.8)
[2017-03-04] MEDS ORDERED: NS 0.9% 250 ML* 250 ML IV ONE (04:00)
[2017-03-04 04:15] LABS: BUN/Creatinine Ratio 12.8 (8-20); Calcium 8.6 mg/dL (8.6-10.3); EGFR African American 126.9 (>60); EGFR Non-African American 98.7 (>60); Potassium 3.7 mmol/L (3.5-5.0)
[2017-03-04 04:25] LABS: Troponin I 2.44 ng/mL (<0.04)
[2017-03-04] MEDS: Ticagrelor* 90 MG TAB PO SCH ×2 (05:21→18:12)
[2017-03-04] MEDS ORDERED: Finasteride TAB* 5 MG PO SCH ×2 (09:00→18:30)
[2017-03-04] MEDS: Aspirin Low Dose CHEW TAB* 81 MG PO SCH (09:08)
[2017-03-04] MEDS: Metoprolol Succinate XL TAB* 25 MG PO SCH ×2 (09:08→21:15)
--- NOTE | 2017-03-04 14:54 | PN ---
Subjective Date of Service: 03/04/17 Interval History: Patient underwent cardiac catheterization yesterday with Dr Ellis without incident. Stent placed in LAD. Patient chest pain free at this time. No other complaints. New medications discussed with patient and he voiced understanding. Family History: Unchanged from Admission Social History: Unchanged from Admission Past Medical History: Unchanged from Admission Objective Active Medications: Acetaminophen (Tylenol Tab*) 650 mg PO Q6H PRN PRN Reason: PAIN Last Admin: 03/04/17 11:41 Dose: 650 mg Aspirin (Aspirin Low Dose Tab*) 81 mg PO DAILY [facility] Last Admin: 03/04/17 09:08 Dose: 81 mg Atorvastatin Calcium (Lipitor*) 80 mg PO 2100 [facility] Last Admin: 03/03/17 20:33 Dose: Not Given Finasteride (Proscar Tab*) 5 mg PO Q24H [facility] Lisinopril (Prinivil Tab*) 5 mg PO DAILY [facility] Metoprolol Succinate (Toprol Xl Tab*) 25 mg PO BID [facility] Last Admin: 03/04/17 09:08 Dose: 25 mg Nitroglycerin (Nitroglycerin Tab 0.4 Mg*) 0.4 mg SL Q5M PRN PRN Reason: ANGINA Tamsulosin HCl (Flomax Cap*) 0.4 mg PO BEDTIME [facility] Ticagrelor (Brilinta*) 90 mg PO 0600,1800 [facility] Last Admin: 03/04/17 05:21 Dose: 90 mg Vital Signs 03/03/17 03/03/17 03/03/17 15:30 16:00 16:03 Temperature 99.2 F Pulse Rate 76 51 Respiratory 16 22 Rate Blood Pressure 120/95 (mmHg) O2 Sat by Pulse 99 86 Oximetry 03/03/17 03/03/17 03/03/17 16:07 16:15 16:21 Temperature 99.2 F Pulse Rate 68 82 Respiratory 18 18 Rate Blood Pressure 148/94 133/65 (mmHg) O2 Sat by Pulse 95 98 96 Oximetry 03/03/17 03/03/17 03/03/17 16:30 17:00 17:02 Temperature 98.9 F Pulse Rate 68 70 68 Respiratory 16 16 16 Rate Blood Pressure 143/70 159/89 159/89 (mmHg) O2 Sat by Pulse 97 99 Oximetry 03/03/17 03/03/17 03/03/17 17:05 17:25 17:27 Temperature Pulse Rate 69 69 Respiratory 17 18 18 Rate Blood Pressure (mmHg) O2 Sat by Pulse 96 99 Oximetry 03/03/17 03/03/17 03/03/17 17:30 17:31 17:45 Temperature Pulse Rate 70 74 70 Respiratory 21 19 18 Rate Blood Pressure 146/88 151/88 (mmHg) O2 Sat by Pulse 99 97 97 Oximetry 03/03/17 03/03/17 03/03/17 18:00 18:01 18:15 Temperature Pulse Rate 70 68 Respiratory 22 21 14 Rate Blood Pressure 136/87 136/79 (mmHg) O2 Sat by Pulse 96 97 Oximetry 03/03/17 03/03/17 03/03/17 18:30 18:31 18:46 Temperature Pulse Rate 61 58 95 Respiratory 15 20 22 Rate Blood Pressure 134/74 124/86 (mmHg) O2 Sat by Pulse 97 96 95 Oximetry 03/03/17 03/03/17 03/03/17 19:00 20:03 20:15 Temperature 98.6 F Pulse Rate Respiratory 16 16 Rate Blood Pressure (mmHg) O2 Sat by Pulse Oximetry 03/03/17 03/03/17 03/03/17 20:26 20:28 20:30 Temperature 98.3 F Pulse Rate 55 Respiratory 12 Rate Blood Pressure 118/71 128/69 (mmHg) O2 Sat by Pulse 98 Oximetry 03/03/17 03/03/17 03/03/17 20:41 20:46 20:56 Temperature 98.3 F 98.3 F Pulse Rate 56 52 Respiratory 13 16 Rate Blood Pressure 125/77 (mmHg) O2 Sat by Pulse 98 98 Oximetry 03/03/17 03/03/17 03/03/17 21:00 21:11 21:15 Temperature 98.3 F Pulse Rate 60 55 Respiratory 15 16 Rate Blood Pressure 131/73 130/72 (mmHg) O2 Sat by Pulse 98 97 Oximetry 03/03/17 03/03/17 03/03/17 21:30 21:41 21:45 Temperature 98.8 F Pulse Rate 58 57 Respiratory 18 16 Rate Blood Pressure 106/61 116/62 (mmHg) O2 Sat by Pulse 98 97 Oximetry 03/03/17 03/03/17 03/03/17 21:56 22:00 22:11 Temperature 98.1 F Pulse Rate 59 60 Respiratory 18 17 Rate Blood Pressure 110/60 (mmHg) O2 Sat by Pulse 97 97 Oximetry 03/03/17 03/03/17 03/03/17 22:15 22:22 22:30 Temperature Pulse Rate 61 64 64 Respiratory 13 13 15 Rate Blood Pressure 109/54 102/50 (mmHg) O2 Sat by Pulse 96 96 97 Oximetry 03/03/17 03/03/17 03/03/17 22:55 22:56 23:00 Temperature Pulse Rate 55 67 Respiratory 16 18 17 Rate Blood Pressure 104/52 (mmHg) O2 Sat by Pulse 96 96 Oximetry 03/03/17 03/03/17 03/03/17 23:11 23:30 23:39 Temperature 98.1 F Pulse Rate 65 71 Respiratory 18 18 Rate Blood Pressure 92/50 (mmHg) O2 Sat by Pulse 97 97 Oximetry 03/03/17 03/03/17 03/04/17 23:45 23:54 00:00 Temperature 99.2 F Pulse Rate 65 Respiratory 20 19 Rate Blood Pressure 99/56 (mmHg) O2 Sat by Pulse 96 Oximetry 03/04/17 03/04/17 03/04/17 00:02 00:11 00:26 Temperature 98.1 F 99.2 F Pulse Rate 63 Respiratory 15 Rate Blood Pressure (mmHg) O2 Sat by Pulse 96 Oximetry 03/04/17 03/04/17 03/04/17 00:30 01:00 01:11 Temperature 99.2 F Pulse Rate 59 57 Respiratory 15 14 Rate Blood Pressure 104/51 94/48 (mmHg) O2 Sat by Pulse 96 97 Oximetry 03/04/17 03/04/17 03/04/17 01:12 01:30 02:00 Temperature Pulse Rate 56 73 74 Respiratory 18 18 16 Rate Blood Pressure 95/49 100/50 (mmHg) O2 Sat by Pulse 97 97 97 Oximetry 03/04/17 03/04/17 03/04/17 02:03 02:11 02:30 Temperature 99 F Pulse Rate 65 65 Respiratory 18 19 Rate Blood Pressure 105/54 94/52 (mmHg) O2 Sat by Pulse 97 96 Oximetry 03/04/17 03/04/17 03/04/17 02:33 03:00 03:30 Temperature Pulse Rate 63 63 61 Respiratory 16 15 15 Rate Blood Pressure 96/51 95/48 97/51 (mmHg) O2 Sat by Pulse 96 97 96 Oximetry 0903/04/17 03/04/17 03:56 04:00 04:01 Temperature 99.1 F Pulse Rate 83 85 Respiratory 15 18 21 Rate Blood Pressure 145/87 (mmHg) O2 Sat by Pulse 97 98 Oximetry 03/04/17 03/04/17 03/04/17 04:30 05:00 05:02 Temperature Pulse Rate 58 58 58 Respiratory 19 17 16 Rate Blood Pressure 108/59 123/62 (mmHg) O2 Sat by Pulse 97 97 97 Oximetry 03/04/17 03/04/17 03/04/17 05:28 05:30 06:00 Temperature Pulse Rate 54 103 Respiratory 18 19 20 Rate Blood Pressure 115/69 105/62 (mmHg) O2 Sat by Pulse 97 97 Oximetry 03/04/17 03/04/17 03/04/17 06:30 07:00 07:30 Temperature Pulse Rate 63 63 64 Respiratory 16 16 17 Rate Blood Pressure 106/60 124/78 133/73 (mmHg) O2 Sat by Pulse 96 97 98 Oximetry 03/04/17 03/04/17 03/04/17 07:46 08:00 08:10 Temperature 99.2 F Pulse Rate 72 Respiratory 22 18 Rate Blood Pressure 126/73 (mmHg) O2 Sat by Pulse 98 Oximetry 03/04/17 03/04/17 03/04/17 08:30 09:00 09:30 Temperature Pulse Rate 71 79 69 Respiratory 20 14 14 Rate Blood Pressure 130/88 (mmHg) O2 Sat by Pulse 98 97 99 Oximetry 03/04/17 03/04/17 03/04/17 10:00 10:30 10:57 Temperature Pulse Rate 65 72 67 Respiratory 15 25 19 Rate Blood Pressure 139/80 (mmHg) O2 Sat by Pulse 97 98 99 Oximetry 03/04/17 03/04/17 03/04/17 11:00 11:03 11:30 Temperature Pulse Rate 66 69 76 Respiratory 20 17 15 Rate Blood Pressure 151/100 163/93 156/89 (mmHg) O2 Sat by Pulse 98 98 99 Oximetry 03/04/17 03/04/17 03/04/17 11:51 12:00 12:30 Temperature 99.6 F Pulse Rate 72 72 Respiratory 16 20 Rate Blood Pressure 147/91 133/89 (mmHg) O2 Sat by Pulse 98 99 Oximetry 03/04/17 03/04/17 03/04/17 13:00 13:30 13:31 Temperature Pulse Rate 69 79 78 Respiratory 17 16 20 Rate Blood Pressure 130/87 134/83 (mmHg) O2 Sat by Pulse 98 97 100 Oximetry Oxygen Devices in Use Now: None Eyes: No Scleral Icterus, PERRLA Ears/Nose/Mouth/Throat: NL Teeth, Lips, Gums, Mucous Membranes Moist Neck: NL Appearance and Movements; NL JVP, Trachea Midline Respiratory: Symmetrical Chest Expansion and Respiratory Effort, Clear to Auscultation Cardiovascular: NL Sounds; No Murmurs; No JVD, RRR, No Edema, - - Pulses 2+ in radial, DP, PT. Abdominal: NL Sounds; No Tenderness; No Distention, No Hepatosplenomegaly Lymphatic: No Cervical Adenopathy Extremities: No Edema, No Clubbing, Cyanosis Skin: No Rash or Ulcers Neurological: Alert and Oriented x 3, NL Muscle Strength and Tone Result Diagrams: 03/04/17 03:48 03/04/17 03:48 Additional Lab and Data: Lab Results 03/03/17 03/03/17 03/03/17 Range/Units 13:45 13:45 13:45 WBC 7.0 (3.5-10.8) 10^3/ul RBC 4.72 (4.0-5.4) 10^6/ul Hgb 14.3 (14.0-18.0) g/dl Hct 43 (42-52) % MCV 91 (80-94) fL MCH 30 (27-31) pg MCHC 33 (31-36) g/dl RDW 15 (10.5-15) % Plt Count 226 (150-450) 10^3/ul MPV 8 (7.4-10.4) um3 Neut % (Auto) 58.9 (38-83) % Lymph % (Auto) 28.2 (25-47) % Kane % (Auto) 10.2 H (1-9) % Eos % (Auto) 1.9 (0-6) % Baso % (Auto) 0.8 (0-2) % Absolute Neuts (auto) 4.1 (1.5-7.7) 10^3/ul Absolute Lymphs (auto) 2.0 (1.0-4.8) 10^3/ul Absolute Monos (auto) 0.7 (0-0.8) 10^3/ul Absolute Eos (auto) 0.1 (0-0.6) 10^3/ul Absolute Basos (auto) 0.1 (0-0.2) 10^3/ul Absolute Nucleated RBC 0 10^3/ul Nucleated RBC % 0.1 APTT 28.3 (26.0-36.3) seconds D-Dimer, Quantitative 202 (Less Than 230) ng/mL Sodium 137 (133-145) mmol/L Potassium 4.2 (3.5-5.0) mmol/L Chloride 106 (101-111) mmol/L Carbon Dioxide 26 (22-32) mmol/L Anion Gap 5 (2-11) mmol/L BUN 13 (6-24) mg/dL Creatinine 0.91 (0.67-1.17) mg/dL Est GFR ( Amer) 106.2 (>60) Est GFR (Non-Af Amer) 82.6 (>60) BUN/Creatinine Ratio 14.3 (8-20) Glucose 88 (70-100) mg/dL Lactic Acid (0.5-2.0) mmol/L Calcium 8.9 (8.6-10.3) mg/dL Total Bilirubin 0.40 (0.2-1.0) mg/dL AST 37 (13-39) U/L ALT 15 (7-52) U/L Alkaline Phosphatase 49 (34-104) U/L Total Creatine Kinase 220 (10-223) U/L CK-MB (CK-2) 33.4 H (0.6-6.3) ng/mL Troponin I 2.49 H* (<0.04) ng/mL Total Protein 6.4 (6.4-8.9) g/dL Albumin 3.6 (3.2-5.2) g/dL Globulin 2.8 (2-4) g/dL Albumin/Globulin Ratio 1.3 (1-3) 03/03/17 Range/Units 13:45 WBC (3.5-10.8) 10^3/ul RBC (4.0-5.4) 10^6/ul Hgb (14.0-18.0) g/dl Hct (42-52) % MCV (80-94) fL MCH (27-31) pg MCHC (31-36) g/dl RDW (10.5-15) % Plt Count (150-450) 10^3/ul MPV (7.4-10.4) um3 Neut % (Auto) (38-83) % Lymph % (Auto) (25-47) % Kane % (Auto) (1-9) % Eos % (Auto) (0-6) % Baso % (Auto) (0-2) % Absolute Neuts (auto) (1.5-7.7) 10^3/ul Absolute Lymphs (auto) (1.0-4.8) 10^3/ul Absolute Monos (auto) (0-0.8) 10^3/ul Absolute Eos (auto) (0-0.6) 10^3/ul Absolute Basos (auto) (0-0.2) 10^3/ul Absolute Nucleated RBC 10^3/ul Nucleated RBC % APTT (26.0-36.3) seconds D-Dimer, Quantitative (Less Than 230) ng/mL Sodium (133-145) mmol/L Potassium (3.5-5.0) mmol/L Chloride (101-111) mmol/L Carbon Dioxide (22-32) mmol/L Anion Gap (2-11) mmol/L BUN (6-24) mg/dL Creatinine (0.67-1.17) mg/dL Est GFR ( Amer) (>60) Est GFR (Non-Af Amer) (>60) BUN/Creatinine Ratio (8-20) Glucose (70-100) mg/dL Lactic Acid 0.9 (0.5-2.0) mmol/L Calcium (8.6-10.3) mg/dL Total Bilirubin (0.2-1.0) mg/dL AST (13-39) U/L ALT (7-52) U/L Alkaline Phosphatase (34-104) U/L Total Creatine Kinase (10-223) U/L CK-MB (CK-2) (0.6-6.3) ng/mL Troponin I (<0.04) ng/mL Total Protein (6.4-8.9) g/dL Albumin (3.2-5.2) g/dL Globulin (2-4) g/dL Albumin/Globulin Ratio (1-3) 03/03/17 03/03/1703/03/17 13:45 13:45 13:45 WBC 7.0 RBC 4.72 Hgb 14.3 Hct 43 MCV 91 MCH 30 MCHC 33 RDW 15 Plt Count 226 MPV 8 Neut % (Auto) 58.9 Lymph % (Auto) 28.2 Kane % (Auto) 10.2 H Eos % (Auto) 1.9 Baso % (Auto) 0.8 Absolute Neuts (auto) 4.1 Absolute Lymphs (auto) 2.0 Absolute Monos (auto) 0.7 Absolute Eos (auto) 0.1 Absolute Basos (auto) 0.1 Absolute Nucleated RBC 0 Nucleated RBC % 0.1 APTT 28.3 D-Dimer, Quantitative 202 Sodium 137 Potassium 4.2 Chloride 106 Carbon Dioxide 26 Anion Gap 5 BUN 13 Creatinine 0.91 Est GFR ( Amer) 106.2 Est GFR (Non-Af Amer) 82.6 BUN/Creatinine Ratio 14.3 Glucose 88 Hemoglobin A1c Lactic Acid Calcium 8.9 Total Bilirubin 0.40 AST 37 ALT 15 Alkaline Phosphatase 49 Total Creatine Kinase 220 CK-MB (CK-2) 33.4 H Troponin I 2.49 H* Total Protein 6.4 Albumin 3.6 Globulin 2.8 Albumin/Globulin Ratio 1.3 Triglycerides Cholesterol LDL Cholesterol HDL Cholesterol 03/03/17 03/03/17 03/03/17 13:45 16:21 22:15 WBC RBC Hgb Hct MCV MCH MCHC RDW Plt Count MPV Neut % (Auto) Lymph % (Auto) Kane % (Auto) Eos % (Auto) Baso % (Auto) Absolute Neuts (auto) Absolute Lymphs (auto) Absolute Monos (auto) Absolute Eos (auto) Absolute Basos (auto) Absolute Nucleated RBC Nucleated RBC % APTT D-Dimer, Quantitative Sodium Potassium Chloride Carbon Dioxide Anion Gap BUN Creatinine Est GFR ( Amer) Est GFR (Non-Af Amer) BUN/Creatinine Ratio Glucose Hemoglobin A1c Lactic Acid 0.9 Calcium Total Bilirubin AST ALT Alkaline Phosphatase Total Creatine Kinase CK-MB (CK-2) 27.0 H 17.6 H Troponin I 3.77 H* 3.19 H* Total Protein Albumin Globulin Albumin/Globulin Ratio Triglycerides 97 Cholesterol 228 LDL Cholesterol 163 HDL Cholesterol 45.5 03/04/17 03/04/17 03/04/17 03:48 03:48 03:48 WBC 8.8 RBC 4.45 Hgb 13.6 L Hct 40 L MCV 90 MCH 31 MCHC 34 RDW 14 Plt Count 210 MPV 8 Neut % (Auto) 76.0 Lymph % (Auto) 15.0 L Kane % (Auto) 8.1 Eos % (Auto) 0.4 Baso % (Auto) 0.5 Absolute Neuts (auto) 6.7 Absolute Lymphs (auto) 1.3 Absolute Monos (auto) 0.7 Absolute Eos (auto) 0 Absolute Basos (auto) 0 Absolute Nucleated RBC 0 Nucleated RBC % 0 APTT D-Dimer, Quantitative Sodium 136 Potassium 3.7 Chloride 108 Carbon Dioxide 24 Anion Gap 4 BUN 10 Creatinine 0.78 Est GFR ( Amer) 126.9 Est GFR (Non-Af Amer) 98.7 BUN/Creatinine Ratio 12.8 Glucose 106 H Hemoglobin A1c 5.3 Lactic Acid Calcium 8.6 Total Bilirubin AST ALT Alkaline Phosphatase Total Creatine Kinase CK-MB (CK-2) 13.1 H Troponin I 2.44 H* Total Protein Albumin Globulin Albumin/Globulin Ratio Triglycerides Cholesterol LDL Cholesterol HDL Cholesterol Microbiology and Other Data: Microbiology 03/03/17 17:14 Nasal Screen MRSA (PCR)([facility]) - Final Nasal Mrsa Negative Assess/Plan/Problems-Billing Assessment: Patient is a 71yo male with a Past Medical History significant only for BPH who underwent a cardiac catheterization yesterday for NSTEMI and had a stent placed without incident. - Patient Problems (1) NSTEMI (non-ST elevated myocardial infarction) Current Visit: Yes Status: Acute Code(s): I21.4 - NON-ST ELEVATION (NSTEMI) MYOCARDIAL INFARCTION SNOMED Code(s): 965032735 Comment: Chest Pain resolved, troponin peaked at 3.77 and declining. No signs of CHF. No adverse reactions from lisinopril or metoprolol. (2) Stented coronary artery Current Visit: Yes Status: Acute Code(s): Z95.5 - PRESENCE OF CORONARY ANGIOPLASTY IMPLANT AND GRAFT SNOMED Code(s): 988085066 Comment: Patient stented in LAD, started on aspirin and Brillinta with a loading dose and should continue these for 1 year. (3) BPH (benign prostatic hyperplasia) Current Visit: Yes Status: Acute Code(s): N40.0 - BENIGN PROSTATIC HYPERPLASIA WITHOUT LOWER URINRY TRACT SYMP SNOMED Code(s): 303424298 Comment: Tamsulosin .4mg PO nightly restarted. Continue Proscar. (4) DVT prophylaxis Current Visit: Yes Status: Acute Code(s): KKG0237 - SNOMED Code(s): 365187342 Comment: SCDs, Patient up ad dimitry (5) Full code status Current Visit: Yes Status: Acute Code(s): Z78.9 - OTHER SPECIFIED HEALTH STATUS SNOMED Code(s): 723898103 Status and Disposition: Patient is admitted to ICU. Patient can be discharged tomorrow if status unchanged per cardiology.
--- NOTE | 2017-03-04 15:35 | CATH ---
CC: Dr. Aravind Levy; Dr. Mary Steel * CARDIAC CATHETERIZATION AND INTERVENTIONAL REPORT: DATE OF PROCEDURE: 03/03/17 REASON FOR THE CARDIAC CATHETERIZATION: Patient with non-ST elevation myocardial infarction with continued chest discomfort, assess for the presence of significant coronary artery disease. PROCEDURES: Coronary arteriography, left heart catheterization, primary stenting of the mid LAD with a 2.5 x 16 mm long Synergy drug-eluting stent. DESCRIPTION OF PROCEDURE: The patient was interviewed and examined in the intensive care unit where the risks and benefits were explained. He understood them and wished to proceed. The right radial artery had undergone ultrasound assessment in the intensive care unit and found to be acceptable for an approach. The patient was brought into the cardiovascular laboratory where formal timeout was performed. The patient was prepped and draped in sterile fashion. Right radial artery area was anesthetized with 1% lidocaine. Right radial artery was cannulated and a 6-Urdu Glidesheath was placed. A radial artery cocktail including nitroglycerin 300 mcg and verapamil 3 mg were given intra-arterially. Coronary arteriography was formed utilizing a 5 Urdu TIG4 catheter, which was advanced to the ascending aorta with the help of an exchange length Wholey wire. This catheter was utilized to cannulate the right coronary artery. The left coronary artery was cannulated utilizing an FL 3.5 curved 5-Urdu diagnostic catheter. Left heart catheterization was performed utilizing the TIG catheter when it had crossed the aortic valve and pullback was obtained. No left ventriculography was performed as the patient already had an echocardiogram just prior to the case. Decision was then made to intervene into the left anterior descending artery. An ACT was checked and found to be subtherapeutic at under 200. Patient received an Angiomax bolus and Angiomax drip was started. Guiding views were obtained utilizing a 6-Urdu VL3 curve guide catheter. A 0.014 BMW guidewire was utilized and advanced across the left anterior descending artery mid lesion. Primary stenting was performed utilizing a 2.5 x 16 mm long Synergy drug-eluting stent dilated to 13 atmospheres. Following this, the artery was assessed both with wire in place, wire removed. At the end of the case, the catheter was removed and the sheath was removed and hemostasis was obtained with a Vasc Band. The reverse Barbeau was an A to B. The total contrast used was 205 cc of Omnipaque dye. The radiation exposure included 18.1 minutes of fluoro time. The air kerma radiation was 934 milligray. The DAP radiation was 6106 microgray per meter square. RESULTS: HEMODYNAMIC DATA: Left heart catheterization: Central aortic pressure was recorded at 110/67 with mean 89. Left ventricular pressure was recorded at 113 over left ventricular end-diastolic pressure of 13 to 15. CORONARY ARTERIOGRAPHY: A. Left coronary artery: 1. Left main - widely patent with mild tapering of the distal vessel of approximately 15% to 20%. 2. Left anterior descending artery - the left anterior descending artery had mild luminal irregularities in the most proximal portion of about 25% to 30%. Past this point, there was a critical 95% stenosis in the mid portion of left anterior descending artery. The artery then continued to supply the mid anterior and apical region turning onto the inferior surface. No other significant stenosis was seen. 3. Circumflex artery - A nondominant vessel supplying a high trifurcation marginal branch. Following this, the circumflex supplied a mid and low lying, bifurcating obtuse marginal branch. There were mild luminal irregularities seen in the trifurcation marginal branch. The first obtuse marginal branch has no significant disease. The bifurcating low-lying obtuse marginal branch appeared to have a narrowing as much as a 70% to 75% in its midportion in its worst view. It appeared to be 60% to 65% in other views. INTERVENTION INTO MID LEFT ANTERIOR DESCENDING ARTERY: Successful reduction of 95% mid lesion with primary stenting utilizing a 2.5 x 16 mm long Synergy drug- eluting stent with 0% residual stenosis ABBY-3 flow, no dissection seen. OVERALL ASSESSMENT: Successful intervention into critically stenosed mid LAD of 95% with primary stenting utilizing a 2.5 x 16 mm long Synergy drug-eluting stent with 0% residual stenosis. Of note, the patient does have a borderline significant lesion in the last bifurcating OM of the circumflex artery. Of note , the prior nuclear stress test done within the past 4 months had revealed no ischemia to the posterior lateral wall. At this point in time, aggressive medical management will be pursued including high dose statin therapy, beta- sherin therapy, and dual antiplatelet therapy. The patient will be followed up by Dr. Mary Steel who saw the patient in consultation for chronic cardiac management. [id number]/[facility] #: [id number] [facility]
[2017-03-04] MEDS ORDERED: Finasteride TAB* 5 MG ONE (18:10)
[2017-03-04] MEDS: Lisinopril TAB* 5 MG PO SCH (18:12)
[2017-03-04] MEDS ORDERED: Tamsulosin CAP* 0.4 MG PO SCH (18:30)
[2017-03-04] MEDS: Atorvastatin* 40 MG TAB PO SCH (21:15)
[2017-03-05] MEDS: Ticagrelor* 90 MG TAB PO SCH (05:46)
[2017-03-05 06:08] LABS: Hematocrit 45 % (42-52); Hemoglobin 15.1 g/dl (14.0-18.0); Mean Corpuscular HGB Conc 34 g/dl (31-36); Mean Corpuscular Hemoglobin 30 pg (27-31); Mean Corpuscular Volume 90 fL (80-94); Mean Platelet Volume 8 um3 (7.4-10.4); Red Blood Count 4.97 10^6/ul (4.0-5.4); Red Cell Distribution Width 15 % (10.5-15); White Blood Count 8.7 10^3/ul (3.5-10.8)
[2017-03-05 06:18] LABS: BUN/Creatinine Ratio 17.4 (8-20); Calcium 9.2 mg/dL (8.6-10.3); EGFR African American 104.9 (>60); EGFR Non-African American 81.6 (>60); Potassium 4.1 mmol/L (3.5-5.0)
[2017-03-05] MEDS: Metoprolol Succinate XL TAB* 25 MG PO SCH (08:21)
[2017-03-05] MEDS: Lisinopril TAB* 5 MG PO SCH (08:21)
[2017-03-05] MEDS: Aspirin Low Dose CHEW TAB* 81 MG PO SCH (08:21)
[2017-03-05 09:17] VITALS: BP 107/82
--- NOTE | 2017-03-05 10:53 | PN ---
Subjective Date of Service: 03/05/17 Interval History: Patient seen and examined at bedside. Denies fever, chills, shortness of breath , chest discomfort, N/V/D. 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: Sinus rhythm, rate 70-90's Family History: Unchanged from Admission Social History: Unchanged from Admission Past Medical History: Unchanged from Admission Objective Active Medications: Acetaminophen (Tylenol Tab*) 650 mg PO Q6H PRN Reason: PAIN Aspirin (Aspirin Low Dose Tab*) 81 mg PO DAILY SONJA Atorvastatin Calcium (Lipitor*) 80 mg PO 2100 SONJA Finasteride (Proscar Tab*) 5 mg PO 1830 SONJA Lisinopril (Prinivil Tab*) 10 mg PO DAILY SONJA Lisinopril (Prinivil Tab*) 5 mg PO ONCE ONE Stop: 03/05/17 11:01 Metoprolol Succinate (Toprol Xl Tab*) 25 mg PO BID [facility] Nitroglycerin (Nitroglycerin Tab 0.4 Mg*) 0.4 mg SL Q5M PRN Reason: ANGINA Tamsulosin HCl (Flomax Cap*) 0.4 mg PO 1830 SONJA Ticagrelor (Brilinta*) 90 mg PO 0600,1800 [facility] Vital Signs 03/04/17 03/04/17 03/04/17 10:57 11:00 11:03 Temperature Pulse Rate 67 66 69 Respiratory 19 20 17 Rate Blood Pressure 139/80 151/100 163/93 (mmHg) O2 Sat by Pulse 99 98 98 Oximetry 03/04/17 03/04/17 03/04/17 11:30 11:51 12:00 Temperature 99.6 F Pulse Rate 76 72 Respiratory 15 16 Rate Blood Pressure 156/89 147/91 (mmHg) O2 Sat by Pulse 99 98 Oximetry 03/04/17 03/04/17 03/04/17 12:30 13:00 13:30 Temperature Pulse Rate 72 69 79 Respiratory 20 17 16 Rate Blood Pressure 133/89 130/87 (mmHg) O2 Sat by Pulse 99 98 97 Oximetry 03/04/17 03/04/17 03/04/17 13:31 14:00 14:30 Temperature Pulse Rate 78 71 73 Respiratory 20 16 15 Rate Blood Pressure 134/83 142/85 143/76 (mmHg) O2 Sat by Pulse 100 99 97 Oximetry 03/04/17 03/04/17 03/04/17 15:00 15:18 15:30 Temperature 99.2 F Pulse Rate 71 68 Respiratory 12 20 Rate Blood Pressure 130/79 139/82 (mmHg) O2 Sat by Pulse 97 97 Oximetry 03/04/17 03/04/17 03/04/17 16:00 16:30 16:31 Temperature Pulse Rate 71 68 69 Respiratory 16 19 20 Rate Blood Pressure 138/83 149/70 (mmHg) O2 Sat by Pulse 97 98 98 Oximetry 03/04/17 03/04/17 03/04/17 17:00 17:01 17:30 Temperature Pulse Rate 70 65 80 Respiratory 15 20 21 Rate Blood Pressure 141/72 (mmHg) O2 Sat by Pulse 97 98 99 Oximetry 03/04/17 03/04/17 03/04/17 17:31 18:00 18:30 Temperature Pulse Rate 76 80 76 Respiratory 19 19 22 Rate Blood Pressure 154/72 135/81 125/58 (mmHg) O2 Sat by Pulse 97 97 98 Oximetry 03/04/17 03/04/17 03/04/17 19:00 19:19 19:30 Temperature 99.0 F Pulse Rate 77 80 Respiratory 18 13 Rate Blood Pressure 117/63 124/76 (mmHg) O2 Sat by Pulse 97 97 Oximetry 03/04/17 03/04/17 03/04/17 20:00 20:30 20:41 Temperature Pulse Rate 65 73 67 Respiratory 16 14 19 Rate Blood Pressure 100/54 124/78 124/78 (mmHg) O2 Sat by Pulse 96 97 95 Oximetry 03/04/17 03/04/17 03/04/17 21:00 21:30 22:00 Temperature Pulse Rate 72 62 60 Respiratory 17 15 18 Rate Blood Pressure 156/83 129/67 135/71 (mmHg) O2 Sat by Pulse 97 97 96 Oximetry 03/04/17 03/04/17 03/04/17 22:30 23:00 23:05 Temperature Pulse Rate 59 71 69 Respiratory 15 18 15 Rate Blood Pressure 126/67 117/66 (mmHg) O2 Sat by Pulse 97 97 94 Oximetry 03/04/17 03/05/17 03/05/17 23:30 00:00 00:30 Temperature Pulse Rate 58 61 64 Respiratory 15 23 15 Rate Blood Pressure 116/72 134/67 107/61 (mmHg) O2 Sat by Pulse 96 97 95 Oximetry 03/05/17 03/05/17 03/05/17 01:00 01:30 02:00 Temperature Pulse Rate 60 66 64 Respiratory 14 16 15 Rate Blood Pressure 115/68 119/74 (mmHg) O2 Sat by Pulse 95 95 95 Oximetry 03/05/17 03/05/17 03/05/17 02:30 03:00 03:30 Temperature Pulse Rate 65 73 66 Respiratory 15 14 23 Rate Blood Pressure 111/73 122/74 87/48 (mmHg) O2 Sat by Pulse 94 98 96 Oximetry 03/05/17 03/05/17 03/05/17 04:00 04:01 04:30 Temperature 99.8 F Pulse Rate 66 64 63 Respiratory 14 16 23 Rate Blood Pressure 109/73 98/46 (mmHg) O2 Sat by Pulse 95 97 97 Oximetry 03/05/17 03/05/17 03/05/17 05:00 05:30 05:48 Temperature Pulse Rate 65 70 Respiratory 14 13 18 Rate Blood Pressure 83/44 (mmHg) O2 Sat by Pulse 96 95 Oximetry 03/05/17 03/05/17 03/05/17 06:00 06:30 07:00 Temperature Pulse Rate 70 71 67 Respiratory 16 18 15 Rate Blood Pressure 106/67 110/69 103/68 (mmHg) O2 Sat by Pulse 95 96 97 Oximetry 03/05/17 03/05/17 03/05/17 07:30 07:47 08:00 Temperature 98.9 F Pulse Rate 74 80 Respiratory 17 19 Rate Blood Pressure 109/71 107/82 (mmHg) O2 Sat by Pulse 97 97 Oximetry 03/05/17 03/05/17 03/05/17 08:30 09:00 09:44 Temperature Pulse Rate 89 80 Respiratory 16 20 16 Rate Blood Pressure (mmHg) O2 Sat by Pulse 95 97 Oximetry Oxygen Devices in Use Now: None Appearance: NAD, sitting up in a chair Eyes: PERRLA Ears/Nose/Mouth/Throat: Mucous Membranes Moist Respiratory: Symmetrical Chest Expansion and Respiratory Effort, Clear to Auscultation Cardiovascular: NL Sounds; No Murmurs; No JVD, RRR Abdominal: NL Sounds; No Tenderness; No Distention Extremities: No Edema Skin: No Rash or Ulcers Neurological: Alert and Oriented x 3, NL Muscle Strength and Tone Lines/Tubes/Other Access: Clean, Dry and Intact Peripheral IV - site benign Nutrition: Taking PO's Result Diagrams: 03/05/17 05:52 03/05/17 05:52 Additional Lab and Data: Microbiology and Other Data: Microbiology 03/03/17 17:14 Nasal Screen MRSA (PCR)(MIRI) - Final Nasal Mrsa Negative Assess/Plan/Problems-Billing Assessment: Mr. Peters is a 71yo male with a Past Medical History significant only for BPH who underwent a cardiac catheterization yesterday for NSTEMI and underwent a stent placement without incident. - Patient Problems (1) NSTEMI (non-ST elevated myocardial infarction) Code(s): I21.4 - NON-ST ELEVATION (NSTEMI) MYOCARDIAL INFARCTION SNOMED Code(s ): 894157641 Comment: - Chest Pain resolved - Troponin peaked at 3.77 and declining. - No signs of CHF. - Continue lisinopril, metoprolol, atorvastatin, aspirin and Brillinta. (2) Stented coronary artery Code(s): Z95.5 - PRESENCE OF CORONARY ANGIOPLASTY IMPLANT AND GRAFT SNOMED Code(s): 390509822 Comment: - Patient stented in LAD - Continue aspirin and Brillinta (received loading dose), should continue these for 1 year. (3) BPH (benign prostatic hyperplasia) Code(s): N40.0 - BENIGN PROSTATIC HYPERPLASIA WITHOUT LOWER URINRY TRACT SYMP SNOMED Code(s): 361377311 Comment: - Continue Tamsulosin and Proscar (4) DVT prophylaxis Code(s): YYI3372 - SNOMED Code(s): 731001694 Comment: (5) Full code status Code(s): Z78.9 - OTHER SPECIFIED HEALTH STATUS SNOMED Code(s): 139242706 Status and Disposition: Inpatient. Stable for discharge to home today.
[2017-03-05] MEDS ORDERED: Lisinopril TAB* 5 MG PO ONE (11:00)
--- NOTE | 2017-03-06 04:13 | DS ---
CC: Dr. Mary Steel; Dr. Rosas Quintero; [facility] * DISCHARGE SUMMARY: DATE OF ADMISSION: 03/03/17 DATE OF DISCHARGE: 03/05/17 ATTENDING PHYSICIAN: Dr. Janes Montero * (dictated by Joss Ulloa NP). PRIMARY CARE PROVIDER: Dr. Rosas Quintero PRIMARY DIAGNOSES: 1. Non-ST elevated myocardial infarction. 2. Hyperlipidemia. SECONDARY DIAGNOSIS: Benign prostatic hyperplasia. CONSULTATIONS WHILE IN THE HOSPITAL: Dr. Nathaniel Ellis with Interventional Cardiology and Dr. Mary Steel with Cardiology. PROCEDURES WHILE IN THE HOSPITAL: Cardiac catheterization on 03/03/[address] Nathaniel Ellis. The patient was found to have a left main that was widely patent with mild tapering of the distal vessel of approximately 15% to 20%. The patient's left anterior descending artery was found to have mild luminal irregularities in the most proximal portion of about 25% to 30%. After that point, there was a 95% stenosis in the mid portion of the left anterior descending artery. The patient successfully had a drug-eluting stent placed to that area with no residual stenosis noted. The patient was also found to have a bifurcating circumflex artery that had narrowing as much as 70% to 75% in its mid portion in its worst view and it appeared to be 60% to 65% in other views. STUDIES WHILE IN THE HOSPITAL: 1. Chest x-ray on 03/03/17. Radiologist's impression: No active cardiopulmonary disease noted. 2. Chest, abdomen, and pelvis CTA on 03/03/17. Radiologist's impression: Nonspecific pleural based nodularity, suggest correlation with occupational exposure. Consider followup noncontrast CT imaging of the chest in [address] evidence for acute pulmonary embolic disease. No CT evidence for aortic aneurysm or dissection. Enlarged prostate. Probable bilateral parapelvic cysts , left greater than right, unchanged. 3. Transthoracic echocardiogram on 03/03/17. Neurology Teacher's impression: Normal left ventricular chamber dimensions. Small focal area of apical hypokinesis. LV ejection fraction is 60%. Abnormal left ventricular diastolic filling is observed, consistent with impaired relaxation. The right ventricular chamber size and systolic functions are within normal limits. All valves appear structurally normal with good function. There is trace tricuspid regurgitation. Compared with prior echo of 02/11/15, EF and valve function is stable. Apical wall motion abnormality is newly noted. DISCHARGE MEDICATIONS: New home medications: 1. Brilinta 90 mg oral twice daily. 2. Nitroglycerin 0.4 mg sublingual every 5 minutes as needed for chest pain. 3. Metoprolol succinate 25 mg oral twice daily. 4. Lisinopril 5 mg oral daily. 5. Atorvastatin 80 mg oral daily. Continued home medications: 1. Tamsulosin 0.4 mg oral daily. 2. Proscar 5 mg oral daily. 3. Tramadol 25 mg oral every 6 hours as needed for pain. HISTORY OF PRESENT ILLNESS/HOSPITAL COURSE: Mr. Peters is a 71-year-old male with past medical history significant for BPH and chronic pain, who presented to the emergency room after 12 hours of an achy pressure in the center of his chest. The patient was unable to identify any provoking factors or anything that helps with the pain. The pain was not worse with exertion. He denied any radiating of pain, diaphoresis, nausea, shortness of breath. The patient took 325 mg of aspirin at home before coming to the hospital as he suspected the pain may have been cardiac in nature. The patient has also previously had chest discomfort and had a negative stress test in the past. While in the emergency room, the patient had a chest x-ray showing no cardiopulmonary disease. He had labs remarkable for an elevated D-dimer of 202 with troponin of 2.49. He had an EKG showing a right bundle branch block and nonspecific ST changes in V1. The patient had a CTA of his abdomen, chest, and pelvis with no significant findings. The hospitalists were asked to evaluate the patient for admission. While in the hospital, the patient was seen by Cardiology who felt that the patient was having a non-ST elevation myocardial infarction and the patient was taken to the labor contract analyst by Dr. Ellis on March 03. During the patient's cardiac catheterization, he was found to have significant stenosis of 95% in his LAD. He received a drug-eluting stent to this area. He was also found to have some stenosis in his circumflex artery narrowing as much as 70% to 75% at its worst, but appeared to be 60% to 65% in other places. The patient was started on metoprolol, lisinopril and initially heparin. Aortic dissection was ruled out. The patient has been doing well after his cardiac catheterization. The patient was also found to have hyperlipidemia, was started on a statin. Post cardiac cath, the patient was started on aspirin and Brilinta. Mr. Peters is stable for discharge to home today. Vital signs are as follows: Temperature 98.9, heart rate 85, respiratory rate 20, O2 sat 98% on room air, blood pressure 107/82. DISCHARGE PLAN: Mr. Peters will be discharged to home. Activity as tolerated. He should be on a heart healthy diet. As far as the patient's non-ST elevated myocardial infarction, he has been started on metoprolol succinate 25 mg oral twice daily, lisinopril 5 mg oral daily, atorvastatin 80 mg oral daily, aspirin 81 mg oral daily, Brilinta 90 mg oral twice daily, has been given a prescription for nitroglycerin 0.4 mg sublingual every 5 minutes as needed for chest pain with instructions to call if he continues to have chest pain after 3 doses. As far as the patient's BPH, he has been continued on his usual home medications. The patient has been set up with a follow up appointment to see Dr. Mary Steel with Cardiology on 03/10/17 at 2 p.m. The patient has an appointment with his primary care provider, Dr. Quintero on 03/15/17 at 9:20 a.m. I should note that the patient has also been instructed to not stop taking his Plavix or aspirin without speaking to his assistant superintendent for curriculum first. The patient has had a referral sent to [facility] for a cardiac rehab referral. [facility] will call the patient on Wednesday with an appointment date and time. Regarding the nonspecific pleural based nodularity, Mr. Peters should have a repeat chest CT without contrast in 6 months. The patient has been asked to return to the emergency room for any chest pain or shortness of breath. This is a summarized report of a complex medical history and hospitalization. For further details, please see the entire medical record. TIME SPENT: Time for this discharge was approximately 50 minutes, greater than half of that was spent with the patient discussing discharge plans and instructions. CONDITION ON DISCHARGE: Stable. JOSS GOETZ, SHANTA [id number]/[facility] #: [id number] ROMEO
[2017-03-06] MEDS ORDERED: Lisinopril TAB* 10 MG PO SCH (09:00)
== END 2017-03-05 13:50 | disposition home or self-care (01) | DRG 247 ==
LOC: ED 12:24 → ICU 15:29
PROVIDERS: ADMIT Internal Medicine; ATTEND Internal Medicine
PROC: 3E03317 Introduction of Other Thrombolytic into Peripheral Vein, Percutaneous Approach (ICD-10-PCS; 2017-03-03)
PROC: B2111ZZ Fluoroscopy of Multiple Coronary Arteries using Low Osmolar Contrast (ICD-10-PCS; 2017-03-03)
PROC: 4A023N7 Measurement of Cardiac Sampling and Pressure, Left Heart, Percutaneous Approach (ICD-10-PCS; 2017-03-03)
PROC: 027034Z Dilation of Coronary Artery, One Artery with Drug-eluting Intraluminal Device, Percutaneous Approach (ICD-10-PCS; principal; 2017-03-03 15:00)
DX: I21.4 Non-ST elevation (NSTEMI) myocardial infarction (principal); I07.1 Rheumatic tricuspid insufficiency; I10 Essential (primary) hypertension; N40.0 Benign prostatic hyperplasia without lower urinary tract symptoms; E78.5 Hyperlipidemia, unspecified; I45.10 Unspecified right bundle-branch block; M19.90 Unspecified osteoarthritis, unspecified site; M54.30 Sciatica, unspecified side; I25.10 Atherosclerotic heart disease of native coronary artery without angina pectoris; R91.1 Solitary pulmonary nodule; G89.29 Other chronic pain; Z82.49 Family history of ischemic heart disease and other diseases of the circulatory system; Z72.89 Other problems related to lifestyle; Z87.891 Personal history of nicotine dependence; Z80.52 Family history of malignant neoplasm of bladder; Z79.02 Long term (current) use of antithrombotics/antiplatelets; Z79.82 Long term (current) use of aspirin
CPT/HCPCS: 36415; 71010; 71275; 74174; 76937; 80048; 80053; 80061; 82550; 82553; 83036; 83605; 84484; 85025; 85379; 85730; 87641; 93005; 93306; 93458; 99156; 99157; A9270-GY; C1769; C1876; C1887; C9600-LD; J0583; J1644; J2001; J2250; J3010; Q9967

== ENCOUNTER 2017-04-02 22:34 | Emergency (ER) | payer MEDICARE, BC ==
[2017-04-02 22:40] VITALS: BP 126/84
[2017-04-02 23:34] LABS: Urine Bacteria Absent (Absent); Urine Bilirubin Negative (Negative); Urine Glucose Negative (Negative); Urine Nitrite Negative (Negative)
[2017-04-03] MEDS ORDERED: Cephalexin CAP* 500 MG PO ONE (00:12)
--- NOTE | 2017-04-03 06:13 | ED ---
Pranay Álvarez Rebecca, scribed for Rosio Pettit MD on 04/02/17 at 2334 . GI/ HPI - HPI Summary HPI Summary: Pt is a 71 y/o M who presents to ED c/o bilateral flank pain, hematuria and increased urinary frequency. Sx began this morning and have been intermittent since onset, previously passing clots in his urine with his most recent urine clear of blood,per pt. Associated pain is currently moderate, ranked 4/10. Sx aggravated and alleviated by nothing. Additionally c/o chills, "bladder" pain when urinating, described as pressure. Denies V/D and fever. Has been on a blood thinner (brilinta) for about 1 month s/p UT. - History of Current Complaint Chief Complaint: EDUrogenitalProblems Time Seen by Provider: 04/02/17 23:26 Stated Complaint: BLOOD IN URINE/LOWER BACK PAIN Hx Obtained From: Patient Onset/Duration: Still Present Current Severity: Moderate Pain Intensity: 4 Location of Pain: Flank - Bilateral, Other - Bladder when urinating Pain Characteristics: Pressure - Bladder pain Associated Signs and Symptoms: Positive: Hematuria, Flank Pain - Bilateral, Chills. Negative: Fever Aggravating Factor(s): Nothing Alleviating Factor(s): Nothing - Additional Pertinent History Primary Care Physician: [id number] - Allergy/Home Medications Allergies/Adverse Reactions: Allergies Allergy/AdvReac Type Severity Reaction Status Date / Time No Known Allergies Allergy Verified 04/02/17 23:10 Home Medications: Home Medications Metoprolol Succinate XL TAB* [Toprol XL TAB*] 25 mg PO DAILY 04/02/17 [History Confirmed 04/02/17] PMH/Surg Hx/FS Hx/Imm Hx Endocrine/Hematology History: Denies: Hx Diabetes Cardiovascular History: Denies: Hx Hypertension, Hx Pacemaker/ICD GI History: Denies: Hx Cirrhosis History: Reports: Hx Benign Prostatic Hyperplasia Denies: Hx Dialysis, Hx Renal Disease Musculoskeletal History: Reports: Other Musculoskeletal History - bad knees Sensory History: Reports: Hx Contacts or Glasses Denies: Hx Hearing Aid Opthamlomology History: Reports: Hx Contacts or Glasses Psychiatric History: Denies: Hx Panic Disorder - Surgical History Surgery Procedure, Year, and Place: 06/2015 RIGHT KNEE ARTHROSCOPIC SX,LOW BACK, FINGER - Immunization History Date of Tetanus Vaccine: unk Date of Influenza Vaccine: 2017 Infectious Disease History: No Infectious Disease History: Denies: Hx Hepatitis, Traveled Outside the [place] in Last 30 Days - Family History Known Family History: Positive: Cardiac Disease Negative: Hypertension, Diabetes - Social History Alcohol Use: Occasionally Hx Substance Use: No Substance Use Type: Reports: None Hx Tobacco Use: No Smoking Status (MU): Former Smoker Have You Smoked in the Last Year: No Review of Systems Positive: Chills. Negative: Fever Negative: Ear Ache Negative: Chest Pain Negative: Shortness Of Breath Negative: Abdominal Pain, Vomiting, Diarrhea Positive: frequency, hematuria, pain - Bilateral flank pain and bladder pain when urinating Negative: Rash, Bruising All Other Systems Reviewed And Are Negative: Yes Physical Exam - Summary Physical Exam Summary: Appearance: Alert, conversive, nontoxic appearing Skin: Warm, dry, no mottling, no rashes, no contusions HEENT: EOMI, PERRL, moist mucous membranes Neck: No masses on the neck, supple Respiratory: Clear to auscultation, breath sounds present, no rales, no rhonchi , no wheezes Cardiovascular: RRR, pulses are symmetrical in both lower and upper extremities Abdomen: Soft, non-tender Bowel Sounds: Present Musculoskeletal: No CVA tenderness, no obvious deformity, moving all extremities in a grossly normal manner Neurological: A&Ox3, CN II-XII Intact, moving all extremities symmetrically Psychiatric: Normal affect and mood Triage Information Reviewed: Yes Vital Signs On Initial Exam: Initial Vitals Temp Pulse Resp BP Pulse Ox 98.6 F 92 14 126/84 100 04/02/17 22:38 04/02/17 22:38 04/02/17 22:38 04/02/17 22:38 04/02/17 22:38 Vital Signs Reviewed: Yes - Alan Coma Scale Coma Scale Total: 15 Diagnostics - Vital Signs Vital Signs Temp Pulse Resp BP Pulse Ox 04/02/17 22:38 98.6 F 92 14 126/84 100 - Laboratory Lab Results: Lab Results 04/02/17 Range/Units 22:48 Urine Color Yellow Urine Appearance Cloudy Urine pH 6.0 (5-9) Ur Specific Floyd 1.011 (1.010-1.030) Urine Protein 2+(100 mg/dl) H (Negative) Urine Ketones Negative (Negative) Urine Blood 3+ H (Negative) Urine Nitrate Negative (Negative) Urine Bilirubin Negative (Negative) Urine Urobilinogen Negative (Negative) Ur Leukocyte Esterase 3+ H (Negative) Urine WBC (Auto) 3+(>20/hpf) H (Absent) Urine RBC (Auto) 3+(>10/hpf) H (Absent) Ur Squamous Epith Cells Present H (Absent) Urine Bacteria Absent (Absent) Urine Glucose Negative (Negative) Lab Statement: Any lab studies that have been ordered have been reviewed, and results considered in the medical decision making process. GIGU Course/Dx - Course Assessment/Plan: Pt is a 71 y/o M who presents to ED c/o bilateral flank pain, hematuria and increased urinary frequency. Sx began this morning and have been intermittent since onset, previously passing clots in his urine with his most recent urine clear of blood,per pt. Associated pain is currently moderate, ranked 4/10. Sx aggravated and alleviated by nothing. Additionally c/o chills, "bladder" pain when urinating, described as pressure. Denies V/D and fever. Has been on a blood thinner (brilinta) for about 1 month s/p UT. UA positive for UTI. In the ED course, pt was given Keflex. He will be D/C to home with Dx of UTI with Rx for Keflex and a follow up with his PCP. He is agreeable with this plan. - Diagnoses Provider Diagnoses: UTI (urinary tract infection) Discharge - Discharge Plan Condition: Stable Disposition: HOME Prescriptions: Cephalexin CAP* [Keflex CAP*] 500 mg PO TID #21 cap Patient Education Materials: Urinary Tract Infection in Men (ED) Referrals: Rosas Quintero MD [Primary Care Provider] - Additional Instructions: take the keflex as instructed. return if worse or any new symptoms. If you continue to have persistent blood in your urine, you will need blood work and should return immediately for reevaluation. . Follow up with your doctor on Wednesday. Take all medications as previously instructed. The documentation as recorded by the Pranay thompson Rebecca accurately reflects the service I personally performed and the decisions made by Wilver eid Norma, MD.
== END 2017-04-03 00:44 | disposition home or self-care (01) ==
LOC: ED 22:34
DX: N39.0 Urinary tract infection, site not specified (principal); R31.9 Hematuria, unspecified; R10.84 Generalized abdominal pain; Z87.891 Personal history of nicotine dependence
CPT/HCPCS: 81003; 81015; 87077; 87086; 87186; 99282; A9270-GY

== ENCOUNTER 2017-04-07 12:09 | Emergency (ER) | payer MEDICARE, BC ==
[2017-04-07 12:39] VITALS: BP 149/80
--- NOTE | 2017-04-07 13:11 | UC ---
Laceration HPI - HPI Summary HPI Summary: PT USING A HYDRAULIC WOOD SPLITTER TODAY WHEN THE WOOD KICKED BACK AND STRUCK HIS LEFT 4TH FINGER. PT HAS SEVERAL LACERATIONS. NOT UTD TETANUS. IS CURRENTLY ON CIPRO FOR UTI. DENIES NUMBNESS BEYOND HIS NORMAL. RANGE OF MOTION ALSO AT BASELINE. PT HAS H/O DEGLOVING THIS FINGER IN THE PAST. - History Of Current Complaint Chief Complaint: UCLaceration Stated Complaint: FINGER LAC Time Seen by Provider: 04/07/17 13:05 Hx Obtained From: Patient Laceration Location: Finger - LEFT 4TH Mechanism Of Injury: Blunt Trauma Onset/Duration: Sudden Onset Pain Intensity: 6 Pain Scale Used: 0-10 Numeric Aggravating Factors: Movement Related History: Dominant Hand Left - Allergies/Home Medications Allergies/Adverse Reactions: Allergies Allergy/AdvReac Type Severity Reaction Status Date / Time No Known Allergies Allergy Verified 04/02/17 23:10 PMH/Surg Hx/FS Hx/Imm Hx Cardiovascular History: Cardiac Disease, Hypertension - Surgical History Surgical History: Yes Surgery Procedure, Year, and Place: 06/2015 RIGHT KNEE ARTHROSCOPIC SX,LOW BACK, FINGER. 02/2017 stent placed to heart - Family History Known Family History: Positive: Cardiac Disease Negative: Hypertension, Diabetes - Social History Alcohol Use: Occasionally Substance Use Type: None Smoking Status (MU): Former Smoker Have You Smoked in the Last Year: No When Did the Patient Quit Smoking/Using Tobacco: 32 years ago - Immunization History Most Recent Influenza Vaccination: 2016 Most Recent Pneumonia Vaccination: none Review of Systems Constitutional: Negative Skin: Other - LACERATION Respiratory: Negative Cardiovascular: Negative Gastrointestinal: Negative Neurovascular: Negative Musculoskeletal: Arthralgia All Other Systems Reviewed And Are Negative: Yes Physical Exam Triage Information Reviewed: Yes Appearance: Well-Appearing, No Pain Distress, Well-Nourished Vital Signs: Initial Vital Signs Temp 97.6 F 04/07/17 12:35 Pulse 82 04/07/17 12:35 Resp 16 04/07/17 12:35 BP 149/80 04/07/17 12:35 Pulse Ox 96 04/07/17 12:35 Vital Signs Reviewed: Yes Eyes: Positive: Conjunctiva Clear ENT: Positive: Hearing grossly normal Neck: Positive: Supple Respiratory: Positive: No respiratory distress, No accessory muscle use Cardiovascular: Positive: Pulses Normal Abdomen Description: Positive: Soft Musculoskeletal: Positive: ROM Intact, No Edema Neurological: Positive: Alert Psychological: Positive: Age Appropriate Behavior Skin: Positive: Other - LEFT 4TH FINGER WITH 4 LACERATIONS MEASURING 0.6CM, 1.5CM, 1CM AND 3CM IN LENGTH. GAPING. OOZING BLOOD. SENSATION AND ROM AT BASELINE FOR PT.. Negative: rashes Laceration Repair - Laceration Repair 1 Description: Linear Laceration Size After Repair: Length (cm) - 0.6CM, Width (mm) - 0MM, Depth (mm) - 1MM Modified For Repair: No Type Injection: Digital Anesthesia Used: 2.0% Lido Irrigation With Pressure Irrigation Device: Yes Closure Material: Sutures - 1 SIMPLE INTERRUPTED Closure Method: Single Layer Suture Of: Skin Suture Type: Prolene - 5-0 2 Description: Linear Laceration Size After Repair: Length (cm) - 1.5CM, Width (mm) - 0MM, Depth (mm) - 4MM Modified For Repair: No Type Injection: Digital Anesthesia Used: 2.0% Lido Irrigation With Pressure Irrigation Device: Yes Closure Material: Sutures - 4 SIMPLE INTERRUPTED Closure Method: Single Layer Suture Of: Skin Suture Type: Prolene - 5-0 3 Description: Linear Laceration Size After Repair: Length (cm) - 1CM, Width (mm) - 0MM, Depth (mm) - 2MM Modified For Repair: No Type Injection: Digital Anesthesia Used: 2.0% Lido Irrigation With Pressure Irrigation Device: Yes Closure Material: Sutures - 2 SIMPLE INTERRUPTED Closure Method: Single Layer Suture Of: Skin Suture Type: Prolene - 5-0 4 Description: Linear Laceration Size After Repair: Length (cm) - 3CM, Width (mm) - 0MM, Depth (mm) - 4MM Modified For Repair: No Type Injection: Digital Anesthesia Used: 2.0% Lido Irrigation With Pressure Irrigation Device: Yes Closure Material: Sutures - 8 SIMPLE INTERRUPTED Closure Method: Single Layer Suture Of: Skin Suture Type: Prolene - 5-0 Laceration Course/Dx - Differential Dx - Laceration/Wound Provider Diagnoses: LEFT 4TH FINGER LACERATION REPAIR Discharge - Discharge Plan Condition: Stable Disposition: HOME Patient Education Materials: Laceration (ED) Referrals: Rosas Quintero MD [Primary Care Provider] - If Needed Additional Instructions: KEEP DRESSINGS IN PLACE AND DRY FOR THE FIRST 24 HRS. THEN YOU MAY REMOVE THE DRESSING AND GENTLY CLEANSE WITH SOAP AND WATER. PAT DRY AND RE-BANDAGE. APPLY THIN LAYER ANTIBIOTIC OINTMENT UNDER BANDAGE FOR FIRST 3-4 DAYS ONLY. CHANGE BANDAGE DAILY AND NEEDED IF IT BECOMES SOILED OR WET. SEEK FOLLOW-UP IF YOU DEVELOP SPREADING REDNESS OF THE SKIN, PURULENT DRAINAGE, FEVER, INCREASED PAIN OR ANY OTHER CONCERNING SYMPTOMS. RETURN FOR SUTURE REMOVAL IN 10 DAYS TETANUS IMMUNIZATION GIVEN (TDAP): You have been given an immunization against tetanus. Please record this in your records. In general, a booster is needed only once every 10 years. The tetanus shot protects against tetanus or "lockjaw," which is a complication of certain wound infections (the tetanus shot cannot protect against the actual infection). The immunization site may become warm and red due to local reaction. If this occurs, apply warm compresses and take aspirin or ibuprofen to reduce inflammation and discomfort. Return for evaluation if the reaction becomes severe. XRAYS UNREMARKABLE TODAY. FOLLOW-UP WITH YOUR ORTHOPEDIST DR. DOSS IF YOU DEVELOP ANY LOSS OF SENSATION OR DECREASE IN RANGE OF MOTION.
[2017-04-07] MEDS: Tetan/Diph/Pertus SYR(Tdap)* 0.5 ML SYR(BOOSTRIX) use SYR IM ONE (13:23)
[2017-04-07] MEDS: Lidocaine 2% PF * 5 ML VIAL INJ ONE (13:26)
--- NOTE | 2017-04-07 14:11 | RAD ---
Indication: Left fourth finger injury. 3 views of left fourth finger demonstrates no fracture. No other bone or joint identified. IMPRESSION: No fracture of left fourth digit is noted.
== END 2017-04-07 15:00 | disposition home or self-care (01) ==
LOC: UCEAST 12:09
DX: S61.215A Laceration without foreign body of left ring finger without damage to nail, initial encounter (principal); W22.8XXA Striking against or struck by other objects, initial encounter; Z23 Encounter for immunization
CPT/HCPCS: 12002; 73140; 90715; 99212; G0463

== ENCOUNTER 2017-04-16 08:44 | Emergency (ER) | payer MEDICARE, BC ==
[2017-04-16 08:52] VITALS: BP 122/71
--- NOTE | 2017-04-16 09:39 | UC ---
HPI Wound/Suture Re-check - HPI Summary HPI Summary: PT HERE FOR SUTURE REMOVAL LEFT 4TH FINGER. HAD SUTURES PLACED HERE IN UC ON . DENIES ANY PROBLEMS. WOUND HEALING WELL. - History Of Current Complaint Chief Complaint: UCLaceration Stated Complaint: STITCHES REMOVED Time Seen by Provider: 04/16/17 09:13 Hx Obtained From: Patient Severity: Mild Pain Intensity: 3 Pain Scale Used: 0-10 Numeric - Allergies/Home Medications Allergies/Adverse Reactions: Allergies Allergy/AdvReac Type Severity Reaction Status Date / Time No Known Allergies Allergy Verified 04/16/17 08:47 PMH/Surg Hx/FS Hx/Imm Hx Endocrine History: Dyslipidemia Cardiovascular History: Cardiac Disease, Hypertension - Surgical History Surgical History: Yes Surgery Procedure, Year, and Place: 06/2015 RIGHT KNEE ARTHROSCOPIC SX,LOW BACK, FINGER. 02/2017 stent placed to heart - Family History Known Family History: Positive: Cardiac Disease Negative: Hypertension, Diabetes - Social History Alcohol Use: Occasionally Substance Use Type: None Smoking Status (MU): Former Smoker Have You Smoked in the Last Year: No When Did the Patient Quit Smoking/Using Tobacco: 32 years ago - Immunization History Most Recent Influenza Vaccination: 2016 Most Recent Pneumonia Vaccination: none Review of Systems Constitutional: Negative Skin: Other - HEALING WOUND Respiratory: Negative Cardiovascular: Negative Gastrointestinal: Negative All Other Systems Reviewed And Are Negative: Yes Physical Exam Triage Information Reviewed: Yes Appearance: Well-Appearing, No Pain Distress, Well-Nourished Vital Signs: Initial Vital Signs Temp 98.6 F 04/16/17 08:49 Pulse 67 04/16/17 08:49 Resp 16 04/16/17 08:49 BP 122/71 04/16/17 08:49 Pulse Ox 100 04/16/17 08:49 Vital Signs Reviewed: Yes Eyes: Positive: Conjunctiva Clear ENT: Positive: Hearing grossly normal Neck: Positive: Supple Respiratory: Positive: No respiratory distress, No accessory muscle use Cardiovascular: Positive: Pulses Normal Abdomen Description: Positive: Soft Musculoskeletal: Positive: No Edema Neurological: Positive: Alert Psychological: Positive: Age Appropriate Behavior Skin: Positive: Other - LACERATIONS LEFT 4TH FINGER HEALING WELL. NO ERYTHEMA OR DRAINAGE. MILDLY TENDER. Course/Dx - Course Course Of Treatment: SUTURES REMOVED WITHOUT DIFFICULTY. LACERATIONS LEFT 4TH FINGER HEALING WELL. SOME CRUST REMOVED AND WOUND REINFORCED WITH STERISTRIPS AND TUBE GAUZE APPLIED FOR PROTECTION. - Differential Dx - Laceration/Wound Provider Diagnoses: SUTURE REMOVAL LEFT 4TH FINGER Discharge - Discharge Plan Condition: Stable Disposition: HOME Patient Education Materials: Stitches Removal (ED) Referrals: Rosas Quintero MD [Primary Care Provider] - If Needed Additional Instructions: THE STERISTRIPS WILL FALL OFF ON THEIR OWN IN THE NEXT 1-2 WEEKS. DO NOT PUT ANY OINTMENT ON TOP OF THEM. DO NOT SUBMERGE IN WATER FOR PROLONGED PERIOD OF TIME. OKAY FOR BRIEF SHOWER AFTER 24 HOURS AND THEN BE SURE TO ALLOW TO DRY COMPLETELY.
== END 2017-04-16 09:45 | disposition home or self-care (01) ==
LOC: UCEAST 08:44
DX: S61.215D Laceration without foreign body of left ring finger without damage to nail, subsequent encounter (principal); W45.8XXD Other foreign body or object entering through skin, subsequent encounter; E78.5 Hyperlipidemia, unspecified; I25.10 Atherosclerotic heart disease of native coronary artery without angina pectoris; I10 Essential (primary) hypertension; Z87.891 Personal history of nicotine dependence
CPT/HCPCS: 99212; G0463

== ENCOUNTER 2019-07-06 10:37 | Emergency (ER) | payer MEDICARE ==
[2019-07-06 10:54] VITALS: BP 127/78
--- NOTE | 2019-07-06 11:16 | UC ---
Complaint Male HPI - History of Current Complaint Chief Complaint: UCGU Stated Complaint: URINARY ISSUE Time Seen by Provider: 07/06/19 11:11 Pain Intensity: 0 - Allergies/Home Medications Allergies/Adverse Reactions: Allergies Allergy/AdvReac Type Severity Reaction Status Date / Time No Known Allergies Allergy Verified 07/06/19 10:55 Home Medications: Home Medications Tamsulosin CAP* [Flomax CAP*] 0.4 mg PO DAILY 07/06/19 [History Confirmed ] PMH/Surg Hx/FS Hx/Imm Hx - Surgical History Surgical History: Yes Surgery Procedure, Year, and Place: 06/2015 RIGHT KNEE ARTHROSCOPIC SX,LOW BACK, FINGER. 02/2017 stent placed to heart - Family History Known Family History: Positive: Cardiac Disease Negative: Hypertension, Diabetes - Social History Alcohol Use: None Substance Use Type: None Smoking Status (MU): Former Smoker Have You Smoked in the Last Year: No When Did the Patient Quit Smoking/Using Tobacco: 32 years ago - Immunization History Most Recent Influenza Vaccination: 2015 Most Recent Pneumonia Vaccination: none Physical Exam Vital Signs: Initial Vital Signs Temp 98.2 F 07/06/19 10:51 Pulse 75 07/06/19 10:51 Resp 20 07/06/19 10:51 BP 127/78 07/06/19 10:51 Pulse Ox 100 07/06/19 10:51 Discharge ED - Discharge Plan Referrals: Rosas Quintero MD [Primary Care Provider] -
--- NOTE | 2019-07-06 11:32 | UC ---
UC General HPI - HPI Summary HPI Summary: 74-year-old male comes in with chief complaint of change in urinary symptoms the past one week. he's had to go more frequently. He's had left flank pain. He's had malaise which has been going on for several months. The left flank back pain he says he gets on and off its hurts more with movement. Reports he quite often has low back pain. Denies any abdominal pain. No change in bowels. No change in appetite. No fevers measured. No upper respiratory tract infection symptoms. - History of Current Complaint Chief Complaint: UCGU Stated Complaint: URINARY ISSUE Time Seen by Provider: 07/06/19 11:11 Pain Intensity: 0 - Allergy/Home Medications Allergies/Adverse Reactions: Allergies Allergy/AdvReac Type Severity Reaction Status Date / Time No Known Allergies Allergy Verified 07/06/19 10:55 Home Medications: Home Medications Tamsulosin CAP* [Flomax CAP*] 0.4 mg PO DAILY 07/06/19 [History Confirmed ] PMH/Surg Hx/FS Hx/Imm Hx Previously Healthy: Yes - BPH Endocrine History: Dyslipidemia Cardiovascular History: Hypertension - Surgical History Surgical History: Yes Surgery Procedure, Year, and Place: 06/2015 RIGHT KNEE ARTHROSCOPIC SX,LOW BACK, FINGER. 02/2017 stent placed to heart - Family History Known Family History: Positive: Cardiac Disease Negative: Hypertension, Diabetes - Social History Alcohol Use: None Substance Use Type: None Smoking Status (MU): Former Smoker Have You Smoked in the Last Year: No When Did the Patient Quit Smoking/Using Tobacco: 32 years ago - Immunization History Most Recent Influenza Vaccination: 2016 Most Recent Pneumonia Vaccination: none Review of Systems All Other Systems Reviewed And Are Negative: Yes Constitutional: Positive: Other - SEE HPI Skin: Positive: Negative Eyes: Positive: Negative ENT: Positive: Negative Respiratory: Positive: Negative Cardiovascular: Positive: Negative Gastrointestinal: Positive: Other - SEE HPI Genitourinary: Positive: Other - SEE HPI Motor: Positive: Negative Neurovascular: Positive: Negative Musculoskeletal: Positive: Other: - SEE HPI Neurological: Positive: Negative Psychological: Positive: Negative Is Patient Immunocompromised?: No Physical Exam Triage Information Reviewed: Yes Appearance: Well-Appearing, No Pain Distress, Well-Nourished Vital Signs: Initial Vital Signs Temp 98.2 F 07/06/19 10:51 Pulse 75 07/06/19 10:51 Resp 20 07/06/19 10:51 BP 127/78 07/06/19 10:51 Pulse Ox 100 07/06/19 10:51 Vital Signs Reviewed: Yes Eye Exam: Normal Eyes: Positive: Conjunctiva Clear ENT: Positive: Pharynx normal, TMs normal Neck: Positive: Supple Respiratory: Positive: Lungs clear, Normal breath sounds, No respiratory distress Cardiovascular: Positive: RRR Abdomen Description: Positive: Other: - Abdomen is nontender to palpation. Normal bowel sounds. She has no flank tenderness to percussion however he does relate that the left flank as the area where he gets his pain. Bowel Sounds: Positive: Present Musculoskeletal: Positive: Strength Intact, ROM Intact Neurological: Positive: Alert, Muscle Tone Normal Psychological: Positive: Age Appropriate Behavior Skin Exam: Normal Course/Dx - Course Course Of Treatment: Patient does have white blood cells in the urine. Treating with Bactrim DS by mouth twice a day for 10 days. Patient reports he has a scheduled appointment with his primary care doctor on July 18, 2019. I let him know that as long as he improved that would be an appropriate follow-up with his primary care doctor to determine if he needed to continue antibiotics or not. Treating for a urinary tract infection however if this is prostate infection patient may need to be on antibiotics for a longer period of time. Is unsure whether or not the flank pain is more musculoskeletal or secondary to the kidney however the pain is worse with movement and twisting and turning making me think it's more musculoskeletal. Patient has no abdominal pains with this time. I let the patient know that if he is not improving he needs to follow up either with his primary care doctor or urologist or if he is getting worse with abdominal pain fevers feeling ill he needs to go the emergency department. - Diagnoses Provider Diagnosis: UTI (urinary tract infection), Left flank pain Discharge ED - Sign-Out/Discharge Documenting (check all that apply): Patient Departure All imaging exams completed and their final reports reviewed: No Studies - Discharge Plan Condition: Stable Disposition: HOME Prescriptions: Sulfamethox/Trimethoprim DS* [Bactrim DS 800/160 TAB*] 1 tab PO BID #20 tab Patient Education Materials: Urinary Tract Infection in Men (ED), Flank Pain ( ED) Referrals: Rosas Quintero MD [Primary Care Provider] - Additional Instructions: FOLLOW UP WITH YOUR PRIMARY CARE DOCTOR 07/18/19 SCHEDULED. GET REEVALUATED SOONER IF NOT IMPROVED OR IF WORSE; FEVER, ABDOMINAL PAIN, YOU FEEL ILL OR ANY QUESTIONS OR CONCERNS. GO TO THE EMERGENCY DEPARTMENT IF WORSE. - Billing Disposition and Condition Condition: STABLE Disposition: Home
--- NOTE | 2019-07-08 15:10 | UC ---
- Progress Note Progress Note: Urine culture from July 06, 2019 comes back as strep group G [id number],000. Patient was placed on Bactrim. There is no susceptibility listed for Bactrim on the urine culture. Nursing to call patient and let them know I sent a prescription for amoxicillin and the patient should start the amoxicillin and follow-up with his urologist. Course/Dx - Diagnoses Provider Diagnoses: UTI (urinary tract infection), Left flank pain Discharge ED - Sign-Out/Discharge Documenting (check all that apply): Patient Departure All imaging exams completed and their final reports reviewed: No Studies - Discharge Plan Condition: Stable Disposition: HOME Prescriptions: Amoxicillin PO (*) [Amoxicillin 875 MG (*)] 875 mg PO BID #20 tab Sulfamethox/Trimethoprim DS* [Bactrim DS 800/160 TAB*] 1 tab PO BID #20 tab Patient Education Materials: Urinary Tract Infection in Men (ED), Flank Pain ( ED) Referrals: Rosas Quintero MD [Primary Care Provider] - Additional Instructions: FOLLOW UP WITH YOUR PRIMARY CARE DOCTOR 07/18/19 SCHEDULED. GET REEVALUATED SOONER IF NOT IMPROVED OR IF WORSE; FEVER, ABDOMINAL PAIN, YOU FEEL ILL OR ANY QUESTIONS OR CONCERNS. GO TO THE EMERGENCY DEPARTMENT IF WORSE. - Billing Disposition and Condition Condition: STABLE Disposition: Home
== END 2019-07-06 11:35 | disposition home or self-care (01) ==
LOC: UCEAST 10:37
DX: N39.0 Urinary tract infection, site not specified (principal); R10.9 Unspecified abdominal pain; I10 Essential (primary) hypertension; N40.0 Benign prostatic hyperplasia without lower urinary tract symptoms; Z79.899 Other long term (current) drug therapy; Z87.891 Personal history of nicotine dependence
CPT/HCPCS: 81003; 87077; 87086; 87184; 87186; 99212; G0463

== ENCOUNTER 2020-10-31 07:30 | Inpatient (IN) ==
[~2020-10-31 07:30] MED LIST: Buffered Lidocaine 1% SYRIN 1 ml INTRADERM ONE; Lactated Ringers 1000 ml BAG 1,000 ML IV SCH
[2020-10-31] MEDS ORDERED: fentaNYL 100 mcg/2 ml 50 MCG/ML VIAL ONE (11:06)
[2020-10-31] MEDS ORDERED: Lidocaine 2% PF 5 ML VIAL ONE ×2 (11:08→13:14)
[2020-10-31] MEDS ORDERED: Propofol 10 MG/ML 20 ML BTL ONE (11:08)
[2020-10-31] MEDS ORDERED: Dexamethasone IV 4 MG/ML VIAL 1 ml VIAL ONE (11:08)
[2020-10-31] MEDS ORDERED: Ondansetron 4 mg VIAL 2 MG/ML 2 ml VIAL ONE (11:08)
[2020-10-31] MEDS ORDERED: Phenylephrine IV 10 MG/ML 1 ml VIAL ONE (11:08)
[2020-10-31] MEDS ORDERED: ceFAZolin 2 GM PREMIX 2 GM/50 ML BAG ONE (11:23)
[2020-10-31] MEDS ORDERED: Glycopyrrolate IV 0.2 MG/ML 1 ML VIAL ONE (14:17)
[2020-10-31] MEDS ORDERED: diPHENhydraMINE 25 mg TAB PO PRN (15:48)
[2020-10-31] MEDS ORDERED: Ondansetron 4 mg VIAL 2 MG/ML 2 ml VIAL IV PRN ×2 (15:48→15:58)
[2020-10-31] MEDS ORDERED: Lactulose 30 ml UDC PO PRN (15:48)
[2020-10-31] MEDS ORDERED: Ondansetron ODT 4 mg TAB 4 MG TAB PO PRN (15:48)
[2020-10-31] MEDS ORDERED: diPHENhydraMINE IV 50 MG/ML 1 ml VIAL (BENADRYL) IV PRN (15:48)
[2020-10-31] MEDS ORDERED: Morphine 2 MG/ML SYRINGE IV PRN (15:48)
[2020-10-31] MEDS ORDERED: Magnesium Hydroxide LIQ 30 ML UDC PO PRN (15:48)
[2020-10-31] MEDS ORDERED: fentaNYL 100 mcg/2 ml 50 MCG/ML VIAL IV PRN (15:58)
[2020-10-31] MEDS ORDERED: Naloxone 0.4 mg VIAL 0.4 mg/ml 1 ml VIAL IV PRN (15:58)
[2020-10-31] MEDS ORDERED: Acetaminophen IV 1 GM/100ML 1,000 MG/100 ML VIAL IVPB ONE (15:58)
[2020-10-31] MEDS: Lactated Ringers 1000 ml BAG 1,000 ML IV SCH (17:15)
[2020-10-31] MEDS: Magnesium Hydroxide LIQ 30 ML UDC PO SCH (20:29)
[2020-10-31] MEDS: ceFAZolin 1 GM ADVAN 1 GM in NS 0.9% 50 ML 50 ML IVPB SCH (22:22)
[2020-11-01] MEDS: Lactated Ringers 1000 ml BAG 1,000 ML IV SCH (04:06)
[2020-11-01 05:05] LABS: Hematocrit 34 % (42-52); Hemoglobin 11.5 g/dL (14.0-18.0); Mean Platelet Volume 7.8 fL (7.4-10.4); Platelet Count 172 10^3/uL (150-450)
[2020-11-01 05:24] LABS: Calcium 8.2 mg/dL (8.6-10.3); EGFR Non-African American 77.7 (>60); Potassium 4.7 mmol/L (3.5-5.0)
[2020-11-01] MEDS: ceFAZolin 1 GM ADVAN 1 GM in NS 0.9% 50 ML 50 ML IVPB SCH ×2 (05:25→12:38)
[2020-11-01] MEDS ORDERED: Senna TAB 8.6 mg TAB PO PRN (08:05)
[2020-11-01] MEDS: Magnesium Hydroxide LIQ 30 ML UDC PO SCH (08:44)
[2020-11-01] MEDS ORDERED: Vitamin THERAPEUTIC TAB PO SCH (09:00)
[2020-11-01] MEDS ORDERED: Cholecalciferol (VIT D3) 1,000 unit TAB PO SCH (09:00)
[2020-11-01 11:11] VITALS: BP 90/46
== END 2020-11-01 13:45 | disposition home or self-care (01) | DRG 470 ==
LOC: AA 10:58 → SSU 15:49
PROVIDERS: ADMIT Orthopaedic Surgery Adult Reconstructive Orthopaedic Surgery; ATTEND Orthopaedic Surgery Adult Reconstructive Orthopaedic Surgery

== ENCOUNTER 2024-03-23 11:26 | Inpatient (IN) ==
[~2024-03-23 11:26] MED LIST changes: -Buffered Lidocaine 1% SYRIN 1 ml INTRADERM ONE; +HYDROmorphone 1 MG/1 ML SYRINGE IV PRN; -Lactated Ringers 1000 ml BAG 1,000 ML IV SCH; +Naloxone 0.4 mg VIAL 0.4 mg/ml 1 ml VIAL IV PRN; +Ondansetron 4 mg VIAL 2 MG/ML 2 ml VIAL IV PRN; +fentaNYL 100 mcg/2 ml 50 MCG/ML VIAL IV PRN
[2024-03-23] MEDS ORDERED: Lidocaine 2% PF 5 ML VIAL ONE (11:34)
[2024-03-23] MEDS ORDERED: Midazolam 5 mg/5 ml VIAL 1 mg/ml 5 ml VIAL (5 mg) ONE (11:35)
[2024-03-23] MEDS ORDERED: Tranexamic Acid 1 GM/100ML BAG 2,000 MG/200 ML BAG IV ONE (11:49)
[2024-03-23] MEDS ORDERED: ceFAZolin 2 GM PREMIX 2 GM/50 ML BAG ONE (11:49)
[2024-03-23 12:13] LABS: Rapid COVID-19 Molecular Undetected (Undetected)
[2024-03-23] MEDS ORDERED: ROPIVACAINE 5 MG/ML 30 ML BTL (0.5%) ONE (12:51)
[2024-03-23] MEDS ORDERED: KETAMINE HCL 10 MG/ML 20 ml VIAL (200 MG) ONE (14:10)
[2024-03-23] MEDS ORDERED: Ondansetron 4 mg VIAL 2 MG/ML 2 ml VIAL ONE (15:38)
[2024-03-23] MEDS ORDERED: Ondansetron ODT 4 mg TAB 4 MG TAB PO PRN (16:33)
[2024-03-23] MEDS ORDERED: Calcium Carb (TUMS) 500 mg CHEW TAB PO PRN (16:33)
[2024-03-23] MEDS ORDERED: Magnesium Hydroxide LIQ 30 ML UDC PO PRN (16:33)
[2024-03-23] MEDS ORDERED: Ondansetron 4 mg VIAL 2 MG/ML 2 ml VIAL IV PRN (16:33)
[2024-03-23] MEDS ORDERED: Lactulose 30 ml UDC PO PRN (16:33)
[2024-03-23] MEDS ORDERED: Cyclobenzaprine 5 mg TAB (NF) PO PRN (18:33)
[2024-03-23] MEDS: Lactated Ringers 1000 ml BAG 1,000 ML IV SCH ×2 (19:50→20:56)
[2024-03-23] MEDS: Morphine 2 MG/ML SYRINGE IV PRN (20:54)
[2024-03-23] MEDS: Acetaminophen IV 1 GM/100ML 1,000 MG/100 ML BAG IV ONE (20:57)
[2024-03-23] MEDS: Buffered Lidocaine 1% SYRIN 1 ml INTRADERM ONE (20:57)
[2024-03-23] MEDS: Scopolamine 1 mg/72hr PATCH TRANSDERM ONE (20:57)
[2024-03-23] MEDS: Magnesium Hydroxide LIQ 30 ML UDC PO SCH (20:58)
[2024-03-23] MEDS: ceFAZolin 2 GM PREMIX 2 GM/50 ML BAG IV SCH (22:15)
[2024-03-24 05:43] LABS: Hematocrit 33.7 % (38-53); Hemoglobin 11.4 g/dL (13.2-16.3); Mean Platelet Volume 7.8 fL (7.5-11.2); Platelet Count 195 10^3/uL (150-450)
[2024-03-24 06:05] LABS: Calcium 8.1 mg/dL (8.6-10.3); Creatinine, Serum 0.99 mg/dL (0.67-1.17); Potassium 4.1 mmol/L (3.5-5.0); eGFR CKD-EPI 78.9 (>60)
[2024-03-24] MEDS: Vitamin THERAPEUTIC TAB PO SCH (09:11)
[2024-03-25 05:56] LABS: Hematocrit 32.4 % (38-53); Hemoglobin 10.8 g/dL (13.2-16.3); Platelet Count 176 10^3/uL (150-450)
[2024-03-25 06:29] LABS: Calcium 7.9 mg/dL (8.6-10.3); Creatinine, Serum 1.15 mg/dL (0.67-1.17); Potassium 4.5 mmol/L (3.5-5.0)
[2024-03-26 06:11] LABS: Hematocrit 31.7 % (38-53); Hemoglobin 10.6 g/dL (13.2-16.3); Mean Platelet Volume 8.4 fL (7.5-11.2); Platelet Count 177 10^3/uL (150-450)
[2024-03-27 06:55] LABS: Hematocrit 34.1 % (38-53); Hemoglobin 11.7 g/dL (13.2-16.3); Mean Platelet Volume 8.2 fL (7.5-11.2); Platelet Count 231 10^3/uL (150-450)
[2024-03-27 12:33] VITALS: BP 104/62
== END 2024-03-27 13:30 | disposition home or self-care (01) | DRG 470 ==
LOC: OR 11:26 → SSU 11:26
PROVIDERS: ADMIT Orthopaedic Surgery Adult Reconstructive Orthopaedic Surgery; ATTEND Orthopaedic Surgery Adult Reconstructive Orthopaedic Surgery